=== PATIENT | female | born 1970 | race Caucasian/White ===

== ENCOUNTER 2016-11-14 22:16 | Observation (INO) | payer OTHER ==
[~2016-11-14] VITALS: Ht 170.2 cm; Wt 77.8 kg
[~2016-11-14 22:16] MED LIST: CLOT1CRE3 TOP; FERR-24 PO; RANITAB33 PO
[2016-11-14] MEDS ORDERED: ATOR-22 PO (22:47)
[2016-11-14] MEDS ORDERED: SERT-234 PO (22:47)
[2016-11-14] MEDS ORDERED: MISCCAP80 PO ×2 (22:47)
[2016-11-14] MEDS ORDERED: ZNTT/150 PO (22:47)
[2016-11-14] MEDS ORDERED: FERR325T5 PO (22:47)
[2016-11-14] MEDS ORDERED: ASPI1TAB4 PO (22:51)
[2016-11-14] MEDS ORDERED: LEVO50TA6 PO (22:51)
[2016-11-14] MEDS ORDERED: IBUP-103 PO (22:51)
--- NOTE | 2016-11-14 23:19 | EMERGENCY ROOM VISIT NOTE ---
History Report prepared by Dariel: Xochilt Rocha Under the Supervision of: Dr. Watson Soliz D.O. 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 The patient states she is did not have any trauma or activity that she believes would have caused the pain. The patient currently rates the pain as a 10/10 in severity. The patient states that the pain is worse when she is bending, turning her head, or flexion of her neck. The patient states that today she experienced right eyelid droop. The patient denies any chest pain, SOB, nausea, vomiting, numbness, weakness, or tingling. The patient denies any headache.The patient states she tried to use Advil, ibuprofen, stretching and Bengay to treat the pain without any relief. The patient states that her grandmother recently of a hemorrhagic stroke from aneurysm. 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 Review of Systems See HPI for pertinent positives & negatives. A total of 10 systems reviewed and were otherwise negative. Past Medical & Surgical Medical Problems: (1) Bunion, right Family History Heart disease Hypertension Social History Smoking Status: Never Smoker Alcohol Use: none Drug Use: none Marital Status: Housing Status: lives with significant other Occupation Status: unemployed Current/Historical Medications Scheduled Atorvastatin (Lipitor), 20 MG PO HS Ferrous Sulfate (Ferrous Sulfate), 325 MG PO DAILY Levothyroxine Sodium (Levothyroxine Sodium), 50 MCG PO DAILY Probiotic Product (Probiotic), 1 CAP PO QAM Probiotic Product (Probiotic), 1 CAP PO WITH LUNCH Sertraline (Zoloft), 150 MG PO HS Scheduled PRN Aspirin-Caffeine (Holly Back & Body Pain Ex), 1 TAB PO UD PRN for Pain Ibuprofen Tab (Advil), 200 MG PO UD PRN for Pain Ranitidine (Zantac), 150 MG PO BID PRN for Indigestion Allergies Coded Allergies: Penicillins (Verified Allergy, RASH, 08/14/12) Physical Exam Vital Signs Date Time Temp Pulse Resp B/P Pulse Ox O2 Delivery O2 Flow Rate FiO2 11/14/16 23:24 87 18 149/91 99 Room Air 11/14/16 23:21 84 11/14/16 23:19 99 Room Air 11/14/16 22:20 37.1 92 16 153/95 98 Room Air Physical Exam GENERAL: Patient is awake, alert, and in no acute distress. Patient is resting comfortably and showing no signs of anxiety EYES: The ptosis noted in the right eyelid. Pupils are equal round and reactive to light. Extraocular muscles intact. EARS, NOSE, MOUTH AND THROAT: The nose is without any evidence of any deformity. Mucous membranes are moist tongue is midline NECK: No midline tenderness noted.Appeared to be posterior perivertebral tenderness of the neck. ROM limited secondary to pain. RESPIRATORY: Normal respiratory effort is noted there is no evidence of wheezing rhonchi or rales CARDIOVASCULAR: Regular rate and rhythm noted there no murmurs rubs or gallops normal S1 normal S2 GASTROINTESTINAL: The abdomen is soft. Bowel sounds are present in all quadrants. Abdomen is nontender MUSCULOSKELETAL/EXTREMITIES: There is no evidence of gross deformity full range of motion is noted in the hips and shoulders SKIN: There is no obvious evidence of any rash. There are no petechiae, pallor or cyanosis noted. NEUROLOGIC: Patient is awake alert and oriented x3. No facial droop noted. Patellar tendon reflexes are 2+ bilaterally. Medical Decision & Procedures ER Provider Diagnostic Interpretation: X-ray results as stated below per interpretation by me: Chest X-Ray: No definite infiltrate, Heart size normal, No free air. No acute disease. No change from 08/14/2012 CT results as stated below per my review and radiologist interpretation. Preliminary Findings Only-- See Final Report for Complete Findings: CT HEAD: Mild off axis imaging. No intracranial hemorrhage, mass effect or CT evidence of acute infarct. Ventricles are within limits and midline Paranasal sinuses, mastoid and orbits are within limits CTA HEAD: No vessel cut off, flow significant stenosis or aneurysm identified. 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 CTA NECK: No evidence of flow significant stenosis or dissection Dominant right vertebral artery, anatomic variant Aberrant right subclavian artery, anatomic variant. Radiologist: Cade Bowles MD Study ready at 0009 and initial results transmitted at 0022 Laboratory Results 11/14/16 23:20 Red Blood Count 4.49, Mean Corpuscular Volume 90.2, Mean Corpuscular Hemoglobin 30.5, Mean Corpuscular Hemoglobin Concent 33.8, Mean Platelet Volume 10.8, Neutrophils (%) (Auto) 68.0, Lymphocytes (%) (Auto) 21.4, Monocytes (%) (Auto) 9.0, Eosinophils (%) (Auto) 1.1, Basophils (%) (Auto) 0.3, Neutrophils # (Auto) 7.72, Lymphocytes # (Auto) 2.43, Monocytes # (Auto) 1.02, Eosinophils # (Auto) 0.12, Basophils # (Auto) 0.03 11/14/16 23:20 Test 11/14/16 23:20 11/14/16 23:23 11/15/16 00:51 White Blood Count 11.34 K/uL (4.8-10.8) Red Blood Count 4.49 M/uL (4.2-5.4) Hemoglobin 13.7 g/dL (12.0-16.0) Hematocrit 40.5 % (37-47) Mean Corpuscular Volume 90.2 fL (80-100) Mean Corpuscular Hemoglobin 30.5 pg (25-34) Mean Corpuscular Hemoglobin Concent 33.8 g/dl (32-36) Platelet Count 243 K/uL (130-400) Mean Platelet Volume 10.8 fL (7.4-10.4) Neutrophils (%) (Auto) 68.0 % Lymphocytes (%) (Auto) 21.4 % Monocytes (%) (Auto) 9.0 % Eosinophils (%) (Auto) 1.1 % Basophils (%) (Auto) 0.3 % Neutrophils # (Auto) 7.72 K/uL (1.4-6.5) Lymphocytes # (Auto) 2.43 K/uL (1.2-3.4) Monocytes # (Auto) 1.02 K/uL (0.11-0.59) Eosinophils # (Auto) 0.12 K/uL (0-0.5) Basophils # (Auto) 0.03 K/uL (0-0.2) RDW Standard Deviation 45.3 fL (36.4-46.3) RDW Coefficient of Variation 13.7 % (11.5-14.5) Immature Granulocyte % (Auto) 0.2 % Immature Granulocyte # (Auto) 0.02 K/uL (0.00-0.02) Prothrombin Time 10.6 SECONDS (9.0-12.0) Prothromb Time International Ratio 1.0 (0.9-1.1) Activated Partial Thromboplast Time 26.6 SECONDS (21.0-31.0) Partial Thromboplastin Ratio 1.0 Urine Color YELLOW Urine Appearance CLEAR (CLEAR) Urine pH 6.0 (4.5-7.5) Urine Specific [place] 1.018 (1.000-1.030) Urine Protein NEG (NEG) Urine Glucose (UA) NEG (NEG) Urine Ketones NEG (NEG) Urine Occult Blood NEG (NEG) Urine Nitrite NEG (NEG) Urine Bilirubin NEG (NEG) Urine Urobilinogen NEG (NEG) Urine Leukocyte Esterase SMALL (NEG) Urine WBC (Auto) 1-5 /hpf (0-5) Urine RBC (Auto) 0-4 /hpf (0-4) Urine Hyaline Casts (Auto) 0 /lpf (0-5) Urine Epithelial Cells (Auto) >30 /lpf (0-5) Urine Bacteria (Auto) NEG (NEG) Est Creatinine Clear Calc Drug Dose 85.5 ml/min Estimated GFR () 90.7 Estimated GFR (Non- 78.2 BUN/Creatinine Ratio 19.0 (10-20) Calcium Level 8.4 mg/dl (8.5-10.1) Magnesium Level 2.0 mg/dl (1.8-2.4) Total Bilirubin 0.2 mg/dl (0.2-1) Direct Bilirubin < 0.1 mg/dl (0-0.2) Aspartate Amino Transf (AST/SGOT) 16 U/L (15-37) Alanine Aminotransferase (ALT/SGPT) 39 U/L (12-78) Alkaline Phosphatase 97 U/L (45-117) Troponin I < 0.015 ng/ml (0-0.045) Total Protein 7.5 gm/dl (6.4-8.2) Albumin 3.8 gm/dl (3.4-5.0) Thyroid Stimulating Hormone (TSH) 3.800 uIu/ml (0.300-4.500) Human Chorionic Gonadotropin, Qual NEG (NEG) Bedside Hemoglobin 14.3 g/dl (12.0-16.0) Bedside Hematocrit 42 % (37-47) Bedside Sodium 140 mEq/L (135-144) Bedside Potassium 3.5 mEq/L (3.3-5.0) Bedside Chloride 102 mEq/L (101-112) Bedside Total CO2 24 mEq/l (24-31) Anion Gap 20.0 mmol/L (16-25) Bedside Blood Urea Nitrogen 17 mg/dl (7-18) Bedside Creatinine 0.8 mg/dl (0.6-1.3) Bedside Glucose (other) 95 mg/dl (70-99) Bedside Ionized Calcium ([place]) 1.18 mmol/l (1.12-1.32) Laboratory results per my review. Medications Administered Medications (Trade) Dose Ordered Sig/Torin Route Start Time Stop Time Status Last Admin Dose Admin Ketorolac Tromethamine (Toradol Inj) 30 mg NOW STAT IV 11/15/16 00:29 11/15/16 00:30 DC 11/15/16 00:41 30 MG ECG Indication: other (neck pain) Rate (beats per minute): 79 Rhythm: normal sinus Findings: no ectopy, other (No acute ST segment abnormalities) Comparison ECG Date: July 15, 2012 Change: no significant change ED Course 2255: At this time the patient was evaluated by the medical student. The student s findings were discussed with me. We discussed a possible treatment plan and differential diagnoses for the patient. 2301: The patient was evaluated in room A11B. A complete history and physical examination were performed. 0029: Ordered Toradol Inj 30 mg IV. 0048:I discussed the case with Dr. Blas Arvizu Neurology. He had nothing new to add and that she might want to be seen by ophthalmology for further testing. 0055: I reevaluated the patient at this time and she was hemodynamically stable. She states she is not feeling much better when she arrived and would like to stay for evaluation 0102: I discussed the case with Dr. Gil Arvizu Hospitalist. He agreed to evaluate the patient for further management and care. Medical Decision Prior records/ancillary studies reviewed and summarized above. Nursing notes reviewed. Differential diagnosis: Etiologies such as metabolic, infection, hypo/hyperglycemia, electrolyte abnormalities, cardiac sources, intracerebral event, toxicologic, neurologic, as well as others were entertained. The patient is a 46-year-old female who presented to the emergency department for evaluation of neck pain. The patient complained of neck pain extending into her head but also started noticing problems with her vision on the right eye. The patient noticed that her right eyelid was drooping and this is new for her. The patient states his symptoms have been ongoing since earlier today. She denies having any weakness in the arms or legs. She's had no nausea or vomiting. She has not had similar symptoms in the past. The patient did not have any acute vascular or soft tissue abnormality noted on CT angiography of the head or neck. I discussed the patient's laboratory and radiographic studies with her. She was treated with pain medication in the emergency department. I discussed her case with the on-call neurologist. After discussion he felt the patient may require further studies as well as an evaluation by an community center director. For this reason I discussed this case with the on-call [facility] hospitalist group. They have agreed to evaluate the patient in the emergency department for further management and disposition. The patient was reevaluated multiple times. Consults Time Called: 003 Consulting Physician: Dr. Blas Arvizu Neurology Returned Call: 004 I discussed the case with Dr. Blas Arvizu Neurology. He had nothing new to add and that she might want to be seen by ophthalmology for further testing. Additional Consults: Time Called: 0100 Consulted Physician: Dr. Gil Brody. Returned Call: 010 Additional Comments: I discussed the case with Dr. Gil Brody. He agreed to evaluate the patient for further management and care. Impression Primary Impression: Horners syndrome Additional Impressions: Ptosis, right eyelid Neck muscle strain Headache Scribe Attestation The scribe's documentation has been prepared under my direction and personally reviewed by me in its entirety. I confirm that the note above accurately reflects all work, treatment, procedures, and medical decision making performed by me. Departure Information Dispostion Being Evaluated By Hospitalist Referrals No Doctor, Assigned (PCP) Patient Instructions My [facility] Problem Qualifiers Additional Impressions: Neck muscle strain Encounter type: initial encounter Qualified Codes: S16.1XXA - Strain of muscle, fascia and tendon at neck level, initial encounter Headache Headache type: unspecified Headache chronicity pattern: acute headache Intractability: not intractable Qualified Codes: R51 - Headache
[2016-11-14 23:41] LABS: ISTAT CREATININE 0.8 mg/dl (0.6-1.3); ISTAT HEMOGLOBIN 14.3 g/dl (12.0-16.0); ISTAT IONIZED CALCIUM 1.18 mmol/l (1.12-1.32)
[2016-11-14] MEDS ORDERED: OPTIRAY 320 IV PRN (23:45)
[2016-11-14 23:52] LABS: MANUAL MICROSCOPIC REQUIRED? NO; REVIEW REQ? NO; URINE APPEARANCE CLEAR (CLEAR); URINE BILIRUBIN NEG (NEG); URINE COLOR YELLOW; URINE EPITHELIAL CELL AUTO >30 /lpf (0-5); URINE NITRITE NEG (NEG); URINE SPECIFIC GRAVITY 1.018 (1.000-1.030); UROBILINOGEN NEG (NEG)
[2016-11-15] VITALS (7 sets, daily range): BP systolic 107–138; BP diastolic 69–89; PULSE 71–90; TEMP 36.6–37; O2SAT 95–98; Ht 170.2 cm; Wt 77.8 kg
[2016-11-15] MEDS ORDERED: KETOROLAC TROMETHAMINE 30 MG/ML VIAL IV STA (00:29)
[2016-11-15 00:33] LABS: BASO % 0.3 %; BASO ABS # 0.03 K/uL (0-0.2); COMPLETE YES; EOS % 1.1 %; HEMATOCRIT 40.5 % (37-47); IG% 0.2 %; LYMPH % 21.4 %; LYMPH ABS # 2.43 K/uL (1.2-3.4); MEAN CELL VOLUME 90.2 fL (80-100); MEAN CORPUSCULAR HEMOGLOBIN 30.5 pg (25-34); MEAN CORPUSCULAR HGB CONC 33.8 g/dl (32-36); MEAN PLATELET VOLUME 10.8 fL (7.4-10.4); PLATELET COUNT 243 K/uL (130-400); RED BLOOD COUNT 4.49 M/uL (4.2-5.4); WHITE BLOOD COUNT 11.34 K/uL (4.8-10.8)
[2016-11-15 00:38] LABS: PROTHROMBIN TIME (PATIENT) 10.6 SECONDS (9.0-12.0)
[2016-11-15 00:42] LABS: ALT/SGPT 39 U/L (12-78); AST/SGOT 16 U/L (15-37); BLOOD UREA NITROGEN 17 mg/dl (7-18); CALCIUM 8.4 mg/dl (8.5-10.1); CARBON DIOXIDE 27 mmol/L (21-32); CHLORIDE 107 mmol/L (98-107); CREATININE 0.88 mg/dl (0.60-1.20); GLUCOSE 89 mg/dl (70-99); POTASSIUM 3.5 mmol/L (3.5-5.1); SODIUM 143 mmol/L (136-145)
[2016-11-15 00:52] LABS: ALKALINE PHOSPHATASE 97 U/L (45-117)
[2016-11-15 00:58] LABS: PREG INTERNAL NEGATIVE QC NEG CLEAR BACKGROUND; PREG INTERNAL POSITIVE QC POS CONTROL LINE
[2016-11-15 01:18] LABS: LYME DISEASE AB IGG NEG (NEG); LYME DISEASE AB IGM NEG (NEG)
[2016-11-15] MEDS ORDERED: ONDANSETRON INJ 2 MG/ML 2 ML VIAL IV STA (01:26)
[2016-11-15] MEDS ORDERED: SODIUM CHLORIDE 0.9% 1000ML 1,000 ML IV STA (01:26)
[2016-11-15] MEDS ORDERED: MoRPHine SULFATE 4 MG/ML 1 ML CARP\\VIAL IV PRN (01:30)
[2016-11-15] MEDS ORDERED: CALCIUM GLUCONATE 10% 1,000 MG in SODIUM CHLORIDE 0.9% 50ML 50 ML IV STA (01:43)
[2016-11-15] MEDS ORDERED: POTASSIUM CHLORIDE 10 MEQ TABCR PO STA (02:16)
[2016-11-15] MEDS ORDERED: RANITIDINE HCL 150 MG TAB PO PRN (02:30)
[2016-11-15] MEDS ORDERED: IV FLUIDS COMPLETED PRN (02:30)
[2016-11-15] MEDS ORDERED: LORAZEPAM 2 MG/ML 1 ML VIAL IV PRN (02:30)
[2016-11-15] MEDS ORDERED: IBUPROFEN 200 MG TAB PO PRN (02:30)
[2016-11-15] MEDS ORDERED: LORAZEPAM 2 MG/ML 1 ML VIAL IV STA (02:30)
[2016-11-15] MEDS ORDERED: ONDANSETRON INJ 2 MG/ML 2 ML VIAL IV PRN (02:30)
[2016-11-15] MEDS ORDERED: ACETAMINOPHEN 325 MG TAB PO PRN (02:30)
[2016-11-15] MEDS ORDERED: TRAMADOL HCL 50 MG TAB PO PRN (02:30)
[2016-11-15] MEDS ORDERED: NITROGLYCERIN 0.4 MG SL PER TAB CHARGE SL PRN (02:30)
[2016-11-15] MEDS ORDERED: CYCLOBENZAPRINE HCL 10 MG TAB PO STA (02:31)
[2016-11-15] MEDS ORDERED: GADAVIST IV PRN (03:45)
[2016-11-15] MEDS ORDERED: LACTATED RINGER'S 1000ML 1,000 ML IV ONE (04:30)
[2016-11-15] MEDS: HYDROmorphone INJ 0.5 MG/0.5 ML SYR IV PRN ×3 (06:08→20:30)
--- NOTE | 2016-11-15 06:13 | HISTORY & PHYSICAL EXAMINATION ---
DATE OF ADMISSION: 11/15/2016 PRIMARY CARE DOCTOR: Dr. Car. CHIEF COMPLAINT: Neck pain, droopy right upper eyelid. HISTORY OF PRESENT ILLNESS: Medical history significant for hyperlipidemia, reflux, past tobacco abuse. Yesterday, the patient woke up with a stiff neck. May have fell asleep in a bad position. She noticed her daughter staring at her. Daughter felt that her right upper lid was droopy. No blurred vision/tearing. No chest pain, no shortness of breath. Patient later on noted generalized achy headache, No previous episodes. Patient brought to the Emergency Room. MEDICAL HISTORY: As above. SURGERIES: Bunion surgery. HOME MEDICATIONS: Include Atorvastatin, ranitidine, sertraline, levothyroxine, omeprazole, lorazepam, cyclobenzaprine. ALLERGIES: PENICILLIN. FAMILY HISTORY: Heart disease, hypertension, stroke. stomach ulcer, heart disease. PERSONAL AND SOCIAL HISTORY: Past tobacco abuse. No chronic intake of alcoholic beverages. 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 PHYSICAL EXAMINATION: VITAL SIGNS: Blood pressure was noted to be 150/95, later 120/70, pulse 90, RR 18, temperature 37, sats 98 on room air. GENERAL: Noted to be slightly anxious, no respiratory distress. SKIN: Normal color. HEENT: [place] palpebral conjunctivae. ptosis, R, dry mucosa. Angular cheilitis noted (chronic) NECK: Stiff. Limited ROM. CHEST: Clear to auscultation. HEART: Regular rate and rhythm. ABDOMEN: Soft. EXTREMITIES: No edema. no tenderness NEUROLOGIC: ptosis, R, Pupils equal in size. LABORATORIES: Hemoglobin was noted to be 13.7, hematocrit 40, white cells 11.3, platelets 240. Sodium 140, potassium 3.5, chloride 107, CO2 27, BUN 17, creatinine 0.8, glucose was noted to be 89. CT initial read showed no intracranial hemorrhage. CTA of the head, no blood flow cutoff, no significant stenosis or aneurysm identified. 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 CTA of the neck, no evidence of flow significant stenosis or dissection. ASSESSMENT: 1. Sudden onset of ptosis, right w/ headache sx may or may not be related to torticollis sx from sleep position. Differentials include : ocular (? aponeurotic ptosis) extraocular (? myasthenia gravis ? cranial nerve palsy from brain tumor ? Jaquan syndrome (although unlikely due to equal pupillary size) 2. hyperlipidemia, on statin therapy. 3. Past tobacco abuse. PLAN: Observation PCU. MRI of the brain. Further eval and mx of unilateral ptosis as per Neurology. (ER MD already in touch with Dr. Odonnell.) May need Ophthalmology evaluation once extraocular causes are ruled out. Symptomatic management for torticollis. DVT prophylaxis, SCDs. Full code. MTDD
[2016-11-15] MEDS: LEVOTHYROXINE 50 MCG TAB PO SCH (06:16)
--- NOTE | 2016-11-15 06:47 | DIAGNOSTIC IMAGING REPORT ---
CHEST ONE VIEW PORTABLE CLINICAL HISTORY: Altered mental status. Weakness. COMPARISON STUDY: No previous studies for comparison. FINDINGS: The cardiac and mediastinal contours are normal. There is no evidence of focal pulmonary consolidation. There is no evidence of failure. No pleural effusions are visualized.[ IMPRESSION: No active disease in the chest. Electronically signed by: Thony Marks M.D. 11/15/2016 6:45 AM Dictated Date/Time: 11/15/2016 6:44 AM
--- NOTE | 2016-11-15 07:27 | DIAGNOSTIC IMAGING REPORT ---
HEAD CTA HISTORY: Right ptosis. TECHNIQUE: Multiaxial CT images of the head were performed both before and after the intravenous administration of contrast to evaluate the major cerebral vessels. Maximum intensity projection images were also obtained. COMPARISON: None. FINDINGS: There is no mass, hematoma, midline shift, or acute infarct. Visualized intracranial internal carotid arteries, distal vertebral arteries, and basilar artery are widely patent. There is no significant stenosis or occlusion seen within the bilateral ACAs, MCAs, or patcher helper. right TOOL DISPATCHER, and anatomic variant. The right A1 segment appears to be absent versus also likely on a developmental basis. 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 IMPRESSION: 1. No significant stenosis or occlusion within the three affiliated of [place]. 2. 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 Electronically signed by: Greyson Sumner M.D. 11/15/2016 7:26 AM Dictated Date/Time: 11/15/2016 7:20 AM
--- NOTE | 2016-11-15 07:31 | DIAGNOSTIC IMAGING REPORT ---
CT ANGIOGRAPHY NECK COMBO CT DOSE: 1141.33 mGy.cm CLINICAL HISTORY: Neck pain and right eye ptosis TECHNIQUE: CT angiography the neck was performed in a dynamic helical fashion during intravenous administration of 92 cc of Optiray 320. MIP imaging was performed. COMPARISON STUDY: None. FINDINGS: There is a 9 mm irregular opacity within the right upper lobe. Short-term CT follow-up is recommended. There is a 2 mm nodule within the right upper lobe. There is elevation of the interstitium. There is a left aortic arch with an aberrant right subclavian artery. There is no evidence of hemodynamically significant carotid stenosis. There is no evidence of carotid dissection. There is no evidence of vertebral artery stenosis or dissection. IMPRESSION: 1. No evidence of carotid artery stenosis or dissection 2. No evidence of vertebral artery stenosis or dissection 3. Left aortic arch with an aberrant right subclavian artery 4. Irregular 9 mm right apical pulmonary opacity. Short-term CT follow-up is recommended. This finding will be called, as this was not described in the preliminary report. Please refer to below summary of Fleischner criteria recommendations for follow-up of incidental CT nodules (Lou Salomon, Guidelines for management of small pulmonary nodules detected on CT scans: A statement from the Fleischner Society, Radiology 237: [phone].) Low Risk Patient: Minimal or no smoking or other known risk factors for malignancy <=4 mm: No follow-up needed. >4-6 mm: Initial follow-up CT at 12 months; if unchanged, no further follow-up. >6-8 mm: Initial follow-up CT at 6-12 months then at 18-24 months if no change. >8 mm: Follow-up CT at \R\3, 9, 24 months, or PET and/or biopsy. High Risk Patient: History of smoking or other known risk factors <=4 mm: Follow-up at 12 months; if unchanged, no further follow-up. >4-6 mm: Initial follow-up CT at 6-12 months then at 18-24 months if no change. >6-8 mm: Initial follow-up CT at 3-6 months then at 9-12 and 24 months if no change. >8 mm: Same as low risk patient. Note: Nodule size measured as average of length and width. Ground glass or partly solid nodules may require longer follow-up to exclude indolent adenocarcinoma. Electronically signed by: Thony Marks M.D. 11/15/2016 7:30 AM Dictated Date/Time: 11/15/2016 7:16 AM
--- NOTE | 2016-11-15 07:49 | DIAGNOSTIC IMAGING REPORT ---
Brain MRI WITH AND WITHOUT CONTRAST HISTORY: headache, ptosis R TECHNIQUE: Multiplanar multisequence MRI of the brain was performed both before and after the intravenous administration of contrast. COMPARISON STUDY: Head CT 8 11/14/2016. FINDINGS: There are no areas of restricted diffusion to suggest acute infarction. The midline structures are intact. The paranasal sinuses are clear. The mastoid air cells are clear. The ventricles and sulci are within normal limits for age. There is no mass, hematoma, midline shift. The major vascular flow-voids at the skull base are well maintained. Postcontrast sequences show no areas of abnormal enhancement. Incidental note is made of a possible small meningocele within the midline posteriorly at the level of the left parietal lobe. This is best seen on axial T2 image 14 and 22. This measures 9 mm and displaces the superior sagittal sinus. There is also a small right parietal developmental venous anomaly. This is considered to be a normal variant. IMPRESSION: 1. No acute intracranial abnormality. 2. 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 Electronically signed by: Greyson Sumner M.D. 11/15/2016 7:47 AM Dictated Date/Time: 11/15/2016 7:39 AM
[2016-11-15] MEDS: FERROUS SULFATE 325 MG TAB PO SCH (08:13)
[2016-11-15] MEDS: CYCLOBENZAPRINE HCL 5 MG TAB PO SCH ×3 (08:13→20:30)
[2016-11-15] MEDS ORDERED: NON-FORMULARY MEDICATION (Probiotic Product (Probiotic) 1 CAP) PO SCH (09:00)
--- NOTE | 2016-11-15 14:13 | Neurology Consultation ---
Neurology Consultation Date of Consultation: Nov 15, 2016. Attending Physician: Klaus Archuleta MD Primary Care Physician: Bibi Car M.D. Reason for Consultation: ptosis of right eye History of Present Illness Source: patient Faith is a 46 year old female with a PMH hypothyroid, chronic TEX who woke Sunday morning with neck pain. She thought the pain was the way she slept on it. The pain kept getting worse and worse and was causing a headache and then last night her daughter said her left eye lid was drooping. She denies vision changes or double vision. She states she has been very fatigued more than usual and that it is worse as the day goes on. No new medications. Past Medical/Surgical History Medical Problems: (1) Headache Status: Acute (2) Horners syndrome Status: Acute (3) Neck muscle strain Status: Acute (4) Ptosis, right eyelid Status: Acute Social History Smoking Status: Former smoker Drug Use: none Marital Status: Housing Status: lives with significant other Occupation Status: unemployed Allergies Coded Allergies: Penicillins (Verified Allergy, RASH, 08/14/12) Current Inpatient Medications Current Inpatient Medications Medications (Trade) Dose Ordered Sig/Torin Route Start Time Stop Time Status Last Admin Dose Admin Ioversol 100 ml 100 ml UD PRN IV 11/14/16 23:45 11/18/16 23:44 Lactated Ringer's (Lr 1000ml) 1,000 ml @ 75 mls/hr [id number] ONCE IV 11/15/16 04:30 11/15/16 17:49 11/15/16 06:08 75 MLS/HR Cyclobenzaprine HCl (Flexeril Tab) 5 mg TID PO 11/15/16 09:00 12/15/16 08:59 11/15/16 08:13 5 MG Miscellaneous (Iv Fluids Completed) 1 ea PRN PRN N/A 11/15/16 02:30 11/15/17 02:29 Acetaminophen (Tylenol Tab) 650 mg Q4H PRN PO 11/15/16 02:30 12/15/16 02:29 Nitroglycerin (Nitrostat Tab) 0.4 mg UD PRN SL 11/15/16 02:30 12/15/16 02:29 Tramadol HCl (Ultram Tab) 25 mg Q6H PRN PO 11/15/16 02:30 12/15/16 02:29 Lorazepam (Ativan Inj) 0.5 mg Q4H PRN IV 11/15/16 02:30 12/15/16 02:29 Ondansetron HCl (Zofran Inj) 4 mg Q6H PRN IV 11/15/16 02:30 12/15/16 02:29 Atorvastatin Calcium (Lipitor Tab) 20 mg HS PO 11/15/16 21:00 12/15/16 20:59 Ferrous Sulfate (Feosol Tab) 325 mg DAILY PO 11/15/16 09:00 12/15/16 08:59 11/15/16 08:13 325 MG Levothyroxine Sodium (Synthroid Tab) 50 mcg DAILYBB PO 11/15/16 06:00 12/15/16 06:59 11/15/16 06:16 50 MCG Ranitidine HCl (zANTac TAB) 150 mg BID PRN PO 11/15/16 02:30 12/15/16 02:29 Sertraline HCl (Zoloft Tab) 150 mg HS PO 11/15/16 21:00 12/15/16 20:59 Ibuprofen (Advil Tab) 400 mg Q6H PRN PO 11/15/16 02:30 12/15/16 02:29 Ketorolac Tromethamine (Toradol Inj) 30 mg Q6H PRN IV 11/15/16 02:30 11/20/16 02:29 Hydromorphone HCl (Dilaudid Inj) 0.5 mg Q6H PRN IV 11/15/16 02:30 11/29/16 02:29 11/15/16 11:15 0.5 MG Gadobutrol (Gadavist) 7.9 mmol UD PRN IV 11/15/16 03:45 11/19/16 03:44 Physical Exam Vital Signs (Past 24 Hrs): Date Time Temp Pulse Resp B/P Pulse Ox O2 Delivery O2 Flow Rate FiO2 11/15/16 12:00 Room Air 11/15/16 11:30 37.0 90 22 124/77 98 Room Air 11/15/16 08:00 Room Air 11/15/16 07:25 36.6 73 14 114/75 98 Room Air 11/15/16 04:06 36.8 84 18 138/89 98 Room Air 11/15/16 02:51 78 18 137/95 96 11/15/16 01:13 80 18 135/83 97 Room Air 11/14/16 23:24 87 18 149/91 99 Room Air 11/14/16 23:21 84 11/14/16 23:19 99 Room Air 11/14/16 22:20 37.1 92 16 153/95 98 Room Air Physical Exam: Constitutional: appearance nourished, healthy and normal Ears, Nose, Mouth and Throat: mucous membranes moist, no injection and skin normal, eyes normal Cardiovascular: normal S-1 and S-2 and regular rate and rhythm Respiratory: clear to auscultation (CTA) and no rales, rhonchi or wheeze Musculoskeletal: no peripheral edema and good distal pulses, limited movement neck laterally and front back, tender to palpation right trapezius Skin: no stigmata of neurocutaneous disease noted and normal and intact Eyes: pupils reactive bilaterally lid ptosis on right, EOMI no fatigue with stressing eye lids able to keep tight shut NEUROLOGIC EXAMINATION: Mental status: Alert and interactive Oriented to full date and location Oriented to person Speech fluent with no evidence of aphasia Cranial Nerves smile and eye brow raise symmetric, tongue midline Reflexes: Deep tendon reflexes were symmetrical brisk bilaterally no clonus Plantar responses were flexor. Sensory: no deficit with cool vibration GT proprioception intact Coordination: Romberg absent Gait/Stance: Posture normal. Gait normal: with steady with steps, base, turning, and tandem gait. stressing deltoids no fatigue Motor: Negative for pronator drift of out stretched arms with eyes closed. Strength: biceps triceps deltoids hand actimize architect bilaterally 5/5, hip flex plantar flex ext 5/ 5 bilaterally Laboratory Results Past 24 Hours: 11/14/16 23:20 Red Blood Count 4.49, Mean Corpuscular Volume 90.2, Mean Corpuscular Hemoglobin 30.5, Mean Corpuscular Hemoglobin Concent 33.8, Mean Platelet Volume 10.8, Neutrophils (%) (Auto) 68.0, Lymphocytes (%) (Auto) 21.4, Monocytes (%) (Auto) 9.0, Eosinophils (%) (Auto) 1.1, Basophils (%) (Auto) 0.3, Neutrophils # (Auto) 7.72, Lymphocytes # (Auto) 2.43, Monocytes # (Auto) 1.02, Eosinophils # (Auto) 0.12, Basophils # (Auto) 0.03 11/14/16 23:20 Test 11/14/16 23:20 11/14/16 23:23 11/15/16 07:50 White Blood Count 11.34 K/uL (4.8-10.8) Red Blood Count 4.49 M/uL (4.2-5.4) Hemoglobin 13.7 g/dL (12.0-16.0) Hematocrit 40.5 % (37-47) Mean Corpuscular Volume 90.2 fL (80-100) Mean Corpuscular Hemoglobin 30.5 pg (25-34) Mean Corpuscular Hemoglobin Concent 33.8 g/dl (32-36) Platelet Count 243 K/uL (130-400) Mean Platelet Volume 10.8 fL (7.4-10.4) Neutrophils (%) (Auto) 68.0 % Lymphocytes (%) (Auto) 21.4 % Monocytes (%) (Auto) 9.0 % Eosinophils (%) (Auto) 1.1 % Basophils (%) (Auto) 0.3 % Neutrophils # (Auto) 7.72 K/uL (1.4-6.5) Lymphocytes # (Auto) 2.43 K/uL (1.2-3.4) Monocytes # (Auto) 1.02 K/uL (0.11-0.59) Eosinophils # (Auto) 0.12 K/uL (0-0.5) Basophils # (Auto) 0.03 K/uL (0-0.2) RDW Standard Deviation 45.3 fL (36.4-46.3) RDW Coefficient of Variation 13.7 % (11.5-14.5) Immature Granulocyte % (Auto) 0.2 % Immature Granulocyte # (Auto) 0.02 K/uL (0.00-0.02) Prothrombin Time 10.6 SECONDS (9.0-12.0) Prothromb Time International Ratio 1.0 (0.9-1.1) Activated Partial Thromboplast Time 26.6 SECONDS (21.0-31.0) Partial Thromboplastin Ratio 1.0 Urine Color YELLOW Urine Appearance CLEAR (CLEAR) Urine pH 6.0 (4.5-7.5) Urine Specific [place] 1.018 (1.000-1.030) Urine Protein NEG (NEG) Urine Glucose (UA) NEG (NEG) Urine Ketones NEG (NEG) Urine Occult Blood NEG (NEG) Urine Nitrite NEG (NEG) Urine Bilirubin NEG (NEG) Urine Urobilinogen NEG (NEG) Urine Leukocyte Esterase SMALL (NEG) Urine WBC (Auto) 1-5 /hpf (0-5) Urine RBC (Auto) 0-4 /hpf (0-4) Urine Hyaline Casts (Auto) 0 /lpf (0-5) Urine Epithelial Cells (Auto) >30 /lpf (0-5) Urine Bacteria (Auto) NEG (NEG) Est Creatinine Clear Calc Drug Dose 85.5 ml/min Estimated GFR () 90.7 Estimated GFR (Non- 78.2 BUN/Creatinine Ratio 19.0 (10-20) Calcium Level 8.4 mg/dl (8.5-10.1) Magnesium Level 2.0 mg/dl (1.8-2.4) Total Bilirubin 0.2 mg/dl (0.2-1) Direct Bilirubin < 0.1 mg/dl (0-0.2) Aspartate Amino Transf (AST/SGOT) 16 U/L (15-37) Alanine Aminotransferase (ALT/SGPT) 39 U/L (12-78) Alkaline Phosphatase 97 U/L (45-117) Troponin I < 0.015 ng/ml (0-0.045) Total Protein 7.5 gm/dl (6.4-8.2) Albumin 3.8 gm/dl (3.4-5.0) Thyroid Stimulating Hormone (TSH) 3.800 uIu/ml (0.300-4.500) Human Chorionic Gonadotropin, Qual NEG (NEG) Lyme Disease IgG Antibody NEG (NEG) Lyme Disease IgM Antibody NEG (NEG) Bedside Hemoglobin 14.3 g/dl (12.0-16.0) Bedside Hematocrit 42 % (37-47) Bedside Sodium 140 mEq/L (135-144) Bedside Potassium 3.5 mEq/L (3.3-5.0) Bedside Chloride 102 mEq/L (101-112) Bedside Total CO2 24 mEq/l (24-31) Anion Gap 20.0 mmol/L (16-25) Bedside Blood Urea Nitrogen 17 mg/dl (7-18) Bedside Creatinine 0.8 mg/dl (0.6-1.3) Bedside Glucose (other) 95 mg/dl (70-99) Bedside Ionized Calcium ([place]) 1.18 mmol/l (1.12-1.32) Imaging MRI with and without contrast brain- No acute intracranial abnormality. 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 CTA head- No significant stenosis or occlusion within the [place]. 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 CTA neck- No evidence of carotid artery stenosis or dissection 2. No evidence of vertebral artery stenosis or dissection 3. Left aortic arch with an aberrant right subclavian artery 4. Irregular 9 mm right apical pulmonary opacity. Short-term CT follow-up is recommended. This finding will be called, as this was not described in the preliminary report. Impression 46 year old with right eye lid ptosis Plan 1. MRI brain with and without no acute findings 2. CT chest and soft tissue neck for possible lesions 3. continue pain mgt prn 4. labs ordered -pending 5. CTA neck with lung nodules CTA head with possible 2mm aneurysm 6. further recommendations to follow once images are completed I have seen and discussed above patient with Dr Nelson Odonnell, neurology Patient seen and interviewed and examined- the evidence for a right horners syndrome is at best weak today but will continue the planned workup with soft tissue ct of neck chest ct to check for apex lesion and will get cervical mri to dheck for unlikely central lesion affecting descending sympathetic pathways and a process at the lower cervical root exit zone but frankly upon review of exam and history suspect this is a migrain variant ( she has a history of low frequency headaches as does her daughter ) and the ptosis is minimal without eom dysfunction or pupillary abnormalities even in a darkened room. will follwo up on imaging and if negative she can be discharged tomorrow Nelson Odonnell MD
[2016-11-15] MEDS: KETOROLAC TROMETHAMINE 30 MG/ML VIAL IV PRN ×2 (14:34→23:52)
[2016-11-15] MEDS ORDERED: ATORVASTATIN 20 MG TAB PO SCH (21:00)
[2016-11-15] MEDS ORDERED: SERTRALINE HCL 100 MG TAB PO SCH (21:00)
[2016-11-15] MEDS ORDERED: OPTIRAY 320 IV PRN (22:45)
[2016-11-16] MEDS: HYDROmorphone INJ 0.5 MG/0.5 ML SYR IV PRN ×2 (03:19→11:07)
[2016-11-16 03:25] VITALS: BP 115/78; PULSE 84; TEMP 36.8; O2SAT 97
[2016-11-16] MEDS: KETOROLAC TROMETHAMINE 30 MG/ML VIAL IV PRN (06:18)
[2016-11-16] MEDS: LEVOTHYROXINE 50 MCG TAB PO SCH (06:18)
--- NOTE | 2016-11-16 06:53 | DIAGNOSTIC IMAGING REPORT ---
CT soft tissue neck SOFT TISSUE NECK WITH CLINICAL HISTORY: Neck pain. Coronary syndrome TECHNIQUE: Transaxial acquisition with multi axial reformatted images COMPARISON STUDY: None FINDINGS: All major salivary glands are unremarkable. Several small reactive cervical nodes are present. There is no significant bulky adenopathy. There is no airway compromise. Glottic and subglottic regions are unremarkable. Note is made of fibrotic and/or nodular changes right pulmonary apex. IMPRESSION: No significant abnormality of the soft tissue neck. Fibrotic/nodular changes right pulmonary apex Electronically signed by: Zay Weldon M.D. 11/16/2016 6:52 AM Dictated Date/Time: 11/16/2016 6:49 AM
--- NOTE | 2016-11-16 07:32 | DIAGNOSTIC IMAGING REPORT ---
CHEST CT WITH CONTRAST CT DOSE: HISTORY: right ptosis question horners syndrome or myasthenia TECHNIQUE: Multiaxial CT images of the chest were performed following the intravenous administration of contrast. COMPARISON: Chest CTA 08/14/2012. FINDINGS: The central airways are patent. No pleural effusions. No pneumothorax. There are 2 irregular densities within the right upper lobe with the largest measuring 1.8 cm. These are stable compared to the prior study and therefore likely represent areas of scarring. No new focal lung consolidations. The visualized liver and adrenal glands are unremarkable. There is a left aortic arch with an aberrant right subclavian artery. The central pulmonary arteries are patent. Normal caliber thoracic aorta. The heart is normal in size. A 7 mm hypodense lesion within the spleen remains stable. This is also likely benign. No suspicious lytic or blastic osseous lesions. A few prominent mediastinal lymph nodes are not significantly changed. No hilar lymphadenopathy. IMPRESSION: 1. No significant change compared the 2012 examination. 2. Small scarlike densities within the right upper lobe persists. 3. Prominent mediastinal lymph nodes are also unchanged. 4. Additional findings as described above. Electronically signed by: Greyson Sumner M.D. 11/16/2016 7:31 AM Dictated Date/Time: 11/16/2016 7:26 AM
[2016-11-16 07:36] VITALS: BP 124/81; PULSE 79; TEMP 36.3; O2SAT 100
--- NOTE | 2016-11-16 08:26 | DIAGNOSTIC IMAGING REPORT ---
CERVICAL SPINE MRI WITH AND WITHOUT CONTRAST HISTORY: Pain. Neuropathy. lesions or abnormalities acute pain TECHNIQUE: Multiplanar multisequence MRI of the cervical spine was performed both before and after the use of intravenous contrast. COMPARISON STUDY: None. FINDINGS: Normal signal characteristics of the vertebral bodies. Mild degenerative disc changes throughout. Mild disc bulges from C3 through C6 based on sagittal images. C2-C3: No significant central canal or neural foraminal narrowing. C3-C4: Mild broad-based disc bulge. Partial effacement anterior subarachnoid space. Minimal narrowing of the neuroforamina bilaterally C4-C5: Mild broad-based disc bulge. Mild narrowing neuroforamina bilaterally C5-C6: Mild broad-based disc bulge. Narrowing of the left and to a lesser extent right neural foramina. No impact upon the cervical cord. C6-C7: Mild broad-based bulging disc. Moderate narrowing of the neuroforamina bilaterally C7-T1: No significant central canal or neural foraminal narrowing. IMPRESSION: 1. Mild broad-based bulging disc from C3 through C6. 2. No significant impact upon the cervical cord. 3. Moderate narrowing of the neuroforamina bilaterally at multiple levels Electronically signed by: Zay Weldon M.D. 11/16/2016 8:25 AM Dictated Date/Time: 11/16/2016 8:22 AM
[2016-11-16] MEDS: CYCLOBENZAPRINE HCL 5 MG TAB PO SCH ×2 (08:27→13:11)
[2016-11-16] MEDS: FERROUS SULFATE 325 MG TAB PO SCH (08:27)
[2016-11-16 11:46] VITALS: BP 117/81; PULSE 92; TEMP 37.3; O2SAT 96
--- NOTE | 2016-11-16 13:15 | Progress Note ---
Internal Med Progress Note Date of Service: Nov 16, 2016. Provider Documentation: SUBJECTIVE: Patient is lying in her bed and is in no acute distress. Has intermittent headache/nausea which is mild and has not vomited. No visual disturbance.Feels weak. Remains afebrile. OBJECTIVE: Vital Signs-as noted below Examination: GENERAL: Alert/Awake and is slightly anxious, In no respiratory distress. SKIN: Normal color. HEENT: [place] palpebral conjunctivae. , dry mucosa. Angular cheilitis noted ( chronic) NECK: Supple, Midline trachea, Normal movements. CHEST: B/L Clear to auscultation. HEART: Regular rate and rhythm.Normal S1, S2. ABDOMEN: Soft.Non-tender, Bowel sounds are present. EXTREMITIES: No edema. no tenderness, Moderate pulses are present. NEUROLOGIC: Pupils equal in size B/L. No gross neurologic deficit noted on examination. Lab data as noted below. ASSESSMENT & PLAN: CT ANGIOGRAPHY NECK COMBO IMPRESSION: 1. No evidence of carotid artery stenosis or dissection 2. No evidence of vertebral artery stenosis or dissection 3. Left aortic arch with an aberrant right subclavian artery 4. Irregular 9 mm right apical pulmonary opacity. Short-term CT follow-up is recommended. This finding will be called, as this was not described in the preliminary report. HEAD CTA IMPRESSION: 1. No significant stenosis or occlusion within the [place]. 2. 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 Brain MRI WITH AND WITHOUT CONTRAST IMPRESSION: 1. No acute intracranial abnormality. 2. 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 CHEST CT WITH CONTRAST IMPRESSION: 1. No significant change compared the 2012 examination. 2. Small scar like densities within the right upper lobe persists. 3. Prominent mediastinal lymph nodes are also unchanged. 4. Additional findings as described above. CERVICAL SPINE MRI WITH AND WITHOUT CONTRAST IMPRESSION: 1. Mild broad-based bulging disc from C3 through C6. 2. No significant impact upon the cervical cord. 3. Moderate narrowing of the neuro-foramina bilaterally at multiple levels Assessment/ Plan: Clinically & hemodynamically doing well. Sudden onset of Right Ptosis: Resolved. has intermittent headache. May or may not be related to torticollis sx from sleep position. -All the work up is negative so far. -May benefit from PT for the Cervical issues. -CT chest shows no new finding Hyperlipidemia: Continue statin therapy. Past tobacco abuse. DVT Prophylaxis: SCDs. Disposition: Discharge home later today. Follow up with PCP on 11/23/2016 @ 12.50 PM. Follow up with Neurology in 2 weeks. Vital Signs: Date Time Temp Pulse Resp B/P Pulse Ox O2 Delivery O2 Flow Rate FiO2 11/16/16 15:16 37.0 75 18 111/74 95 Room Air 11/16/16 11:52 Room Air 11/16/16 11:46 37.3 92 20 117/81 96 Nasal Cannula 2.0 11/16/16 08:00 Room Air 11/16/16 07:36 36.3 79 20 124/81 100 Room Air 11/16/16 04:00 Room Air 11/16/16 03:25 36.8 84 18 115/78 97 Room Air 11/15/16 23:59 Room Air 11/15/16 23:58 36.9 71 18 116/75 96 Room Air 11/15/16 20:00 Room Air 11/15/16 19:25 36.9 76 18 123/78 97 Room Air 11/15/16 16:00 95 Room Air
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
[2016-11-16 15:16] VITALS: BP 111/74; PULSE 75; TEMP 37; O2SAT 95
[2016-11-16] MEDS ORDERED: FLX5 PO (15:44)
--- NOTE | 2016-11-16 15:45 | Discharge Instructions ---
Discharge Instructions Date of Service Nov 16, 2016. Admission Reason for Admission: Headache, Ptosis, Right Eyelid Discharge Discharge Diagnosis / Problem: Right Sided Ptosis (Resolved) Discharge Goals Goal(s): Decrease discomfort, Improve function, Increase independence, Improve disease control, Learn about illness, Diagnostic testing, Therapeutic intervention Activity Recommendations Activity Limitations: resume your previous activity (As Tolerated.) Lifting Limitations: none Exercise/Sports Limitations: as tolerated May Resume Sexual Activity: when tolerated Shower/Bathe: no limitations . Instructions / Follow-Up Instructions / Follow-Up 1. Take medications as directed. 2. Apply warm compresses locally to back of neck. Follow up with PCP on 11/23/2016 @ 12.50 PM. Follow up with Neurology in 2 weeks. Current Hospital Diet Patient's current hospital diet: AHA Diet (Heart Healthy) Discharge Diet Recommended Diet: AHA Diet (Heart Healthy) Pending Studies Studies pending at discharge: no Medical Emergencies . Who to Call and When: Medical Emergencies: If at any time you feel your situation is an emergency, please call 911 immediately. . Non-Emergent Contact Non-Emergency issues call your: Primary Care Provider . . "Provider Documentation" section prepared by Klaus Archuleta. VTE Core Measure Inpt VTE Proph given/why not?: SCD's
[2016-11-16 16:00] VITALS: O2SAT 95
--- NOTE | 2016-11-16 16:03 | Discharge Summary ---
Discharge Summary Date of Service Nov 16, 2016. Discharge Summary Admission Date: Nov 15, 2016 at 02:14 Discharge Date: Nov 16, 2016 Discharge Disposition: Home Principal Diagnosis: Right Sided Ptosis (Resolved) Secondary Diagnoses/Problems: Hyperlipidemia Procedures: See Below in Hospital Course Vaccinations: NONE Consultations: Neurology Pending Studies/Follow-Up: Follow up with Neurology in 2 weeks Medication Reconciliation New Medications: Cyclobenzaprine HCl (Cyclobenzaprine HCl) 5 Mg Tab 5 MG PO TID PRN for Neck Pain/Stiffness, #30 TAB Continued Medications: Aspirin-Caffeine ([place] Back & Body Pain Ex) 1 Tab Tab 1 TAB PO UD PRN for Pain TAKE PER PACKAGE DIRECTIONS Atorvastatin (Lipitor) 20 Mg Tab 20 MG PO HS, TAB Ferrous Sulfate (Ferrous Sulfate) 325 Mg Tab 325 MG PO DAILY Ibuprofen Tab (Advil) 200 Mg Tab 200 MG PO UD PRN for Pain, TAB TAKE PER PACKAGE DIRECTIONS Levothyroxine Sodium (Levothyroxine Sodium) 50 Mcg Tab 50 MCG PO DAILY, TAB Probiotic Product (Probiotic) 1 Cap Cap 1 CAP PO QAM Probiotic Product (Probiotic) 1 Cap Cap 1 CAP PO WITH LUNCH Ranitidine (Zantac) 150 Mg Tab 150 MG PO BID PRN for Indigestion, TAB Sertraline (Zoloft) 100 Mg Tab 150 MG PO HS, TAB Admission Information HPI (per Admitting provider): Medical history significant for hyperlipidemia, reflux, past tobacco abuse. Yesterday, the patient woke up with a stiff neck. May have fell asleep in a bad position. She noticed her daughter staring at her. Daughter felt that her right upper lid was droopy. No blurred vision/tearing. No chest pain, no shortness of breath. Patient later on noted generalized achy headache, No previous episodes. Patient brought to the Emergency Room. Physical Exam (per Admitting): GENERAL: Noted to be slightly anxious, no respiratory distress. SKIN: Normal color. HEENT: [place] palpebral conjunctivae. ptosis, R, dry mucosa. Angular cheilitis noted (chronic) NECK: Stiff. Limited ROM. CHEST: Clear to auscultation. HEART: Regular rate and rhythm. ABDOMEN: Soft. EXTREMITIES: No edema. no tenderness NEUROLOGIC: ptosis, R, Pupils equal in size. Hospital Course CT ANGIOGRAPHY NECK COMBO IMPRESSION: 1. No evidence of carotid artery stenosis or dissection 2. No evidence of vertebral artery stenosis or dissection 3. Left aortic arch with an aberrant right subclavian artery 4. Irregular 9 mm right apical pulmonary opacity. Short-term CT follow-up is recommended. This finding will be called, as this was not described in the preliminary report. HEAD CTA IMPRESSION: 1. No significant stenosis or occlusion within the ruby of [place]. 2. 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 Brain MRI WITH AND WITHOUT CONTRAST IMPRESSION: 1. No acute intracranial abnormality. 2. 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 CHEST CT WITH CONTRAST IMPRESSION: 1. No significant change compared the 2012 examination. 2. Small scar like densities within the right upper lobe persists. 3. Prominent mediastinal lymph nodes are also unchanged. 4. Additional findings as described above. CERVICAL SPINE MRI WITH AND WITHOUT CONTRAST IMPRESSION: 1. Mild broad-based bulging disc from C3 through C6. 2. No significant impact upon the cervical cord. 3. Moderate narrowing of the neuro-foramina bilaterally at multiple levels Assessment/ Plan: Clinically & hemodynamically doing well. Sudden onset of Right Ptosis: Resolved. has intermittent headache. May or may not be related to torticollis sx from sleep position. -All the work up is negative so far. -May benefit from PT for the Cervical issues. -CT chest shows no new finding Hyperlipidemia: Continue statin therapy. Past tobacco abuse. DVT Prophylaxis: SCDs. Disposition: Discharge home later today. Follow up with PCP on 11/23/2016 @ 12.50 PM. Follow up with Neurology in 2 weeks. Total time spent on discharge = 38 minutes. This includes examination of the patient, discharge planning, medication reconciliation, and communication with other providers. Discharge Instructions Discharge Discharge Diagnosis / Problem: Right Sided Ptosis (Resolved) Discharge Goals Goal(s): Decrease discomfort, Improve function, Increase independence, Improve disease control, Learn about illness, Diagnostic testing, Therapeutic intervention Activity Recommendations Activity Limitations: resume your previous activity (As Tolerated.) Lifting Limitations: none Exercise/Sports Limitations: as tolerated May Resume Sexual Activity: when tolerated Shower/Bathe: no limitations . Instructions / Follow-Up Instructions / Follow-Up 1. Take medications as directed. 2. Apply warm compresses locally to back of neck. Additional Copies To Bibi Car M.D.
[2016-11-16 16:19] VITALS: BP 111/74; PULSE 75; TEMP 37; O2SAT 95
[2016-11-18 01:30] LABS: ACETYLCHOLINE RECEPT BLOCKING <15 % inhibit (<15); RECEPTOR BINDING AB <0.30 nmol/L (<=0.30)
[2017-02-26] MEDS ORDERED: LPR25 PO (18:19)
[2017-03-16] MEDS ORDERED: MTR600X PO (14:26)
[2017-03-16] MEDS ORDERED: CLC6 PO (14:26)
== END 2016-11-16 17:15 | disposition home or self-care (01) ==
LOC: ENRESERVDT → ENRESERVTM → C.EDB 22:17 → C.2T 11-15 02:14
PROVIDERS: ADMIT Emergency Medicine; ATTEND Emergency Medicine
DX: H02.401 Unspecified ptosis of right eyelid (principal); S16.1XXA Strain of muscle, fascia and tendon at neck level, initial encounter; X58.XXXA Exposure to other specified factors, initial encounter; E78.5 Hyperlipidemia, unspecified; E03.9 Hypothyroidism, unspecified; K21.9 Gastro-esophageal reflux disease without esophagitis; Z88.0 Allergy status to penicillin; Z79.82 Long term (current) use of aspirin; Z87.891 Personal history of nicotine dependence; Z82.49 Family history of ischemic heart disease and other diseases of the circulatory system; Z82.3 Family history of stroke

== ENCOUNTER 2017-02-26 13:39 | Inpatient (IN) | payer OTHER ==
[~2017-02-26] VITALS: Ht 170.2 cm; Wt 79.5 kg
[~2017-02-26 13:39] MED LIST changes: +ASPI1TAB4 PO; +ATOR-22 PO; -CLOT1CRE3 TOP; -FERR-24 PO; +FERR325T5 PO; +FLX5 PO; +IBUP-103 PO; +LEVO50TA6 PO; +MISCCAP80 PO; -RANITAB33 PO; +SERT-234 PO; +ZNTT/150 PO
[2017-02-26 14:31] LABS: ALT/SGPT 24 U/L (12-78); AST/SGOT 15 U/L (15-37); BLOOD UREA NITROGEN 10 mg/dl (7-18); BUN/CREATININE RATIO 13.3 (10-20); CALCIUM 8.2 mg/dl (8.5-10.1); CARBON DIOXIDE 29 mmol/L (21-32); CHLORIDE 106 mmol/L (98-107); CREATININE 0.79 mg/dl (0.60-1.20); GLUCOSE 94 mg/dl (70-99); POTASSIUM 3.9 mmol/L (3.5-5.1); SODIUM 141 mmol/L (136-145)
[2017-02-26 14:38] LABS: PARTIAL THROMBOPLASTIN RATIO 1.1; PROTHROMBIN TIME (PATIENT) 10.9 SECONDS (9.0-12.0)
[2017-02-26 14:39] LABS: BASO % 0.5 %; BASO ABS # 0.05 K/uL (0-0.2); COMPLETE YES; EOS % 0.5 %; HEMATOCRIT 42.6 % (37-47); IG% 0.5 %; LYMPH % 21.7 %; MEAN CELL VOLUME 91.8 fL (80-100); MEAN CORPUSCULAR HEMOGLOBIN 30.2 pg (25-34); MEAN CORPUSCULAR HGB CONC 32.9 g/dl (32-36); MEAN PLATELET VOLUME 10.7 fL (7.4-10.4); MONO % 13.8 %; PLATELET COUNT 377 K/uL (130-400); RED BLOOD COUNT 4.64 M/uL (4.2-5.4); WHITE BLOOD COUNT 11.07 K/uL (4.8-10.8)
[2017-02-26 14:42] LABS: ALKALINE PHOSPHATASE 141 U/L (45-117); CKMB/CK RATIO 2.2 (0-3.0)
[2017-02-26] MEDS ORDERED: METOPROLOL TARTRATE 1 MG/ML VIAL IV STA (14:51)
[2017-02-26] MEDS ORDERED: ADENOSINE IV SOLN 3 MG/ML 2 ML VIAL IV STA (14:51)
--- NOTE | 2017-02-26 14:51 | DIAGNOSTIC IMAGING REPORT ---
CHEST ONE VIEW PORTABLE CLINICAL HISTORY: Evaluate Fever/Sepsis fever. Sepsis. COMPARISON STUDY: 11/14/2016 FINDINGS: The bones soft tissues and hemidiaphragms are normal. The cardiomediastinal silhouette is normal. The lungs are clear. The pulmonary vasculature is normal. IMPRESSION: Negative chest. Electronically signed by: Zay Weldon M.D. 02/26/2017 2:50 PM Dictated Date/Time: 02/26/2017 2:49 PM
[2017-02-26 15:25] LABS: URINE APPEARANCE CLEAR (CLEAR); URINE BILIRUBIN NEG (NEG); URINE COLOR YELLOW; URINE NITRITE NEG (NEG); URINE PH 7.5 (4.5-7.5); URINE SPECIFIC GRAVITY 1.023 (1.000-1.030); UROBILINOGEN NEG (NEG)
[2017-02-26] MEDS ORDERED: IBUPROFEN 800 MG TAB PO STA (15:30)
[2017-02-26] MEDS ORDERED: ASPIRIN CAFFEINE PO PRN (15:30)
[2017-02-26] MEDS ORDERED: POLYETHYLENE (MIRALAX) 17 GM PACK PO PRN (15:30)
[2017-02-26] MEDS ORDERED: METOPROLOL TARTRATE 1 MG/ML VIAL IV PRN (15:30)
[2017-02-26] MEDS ORDERED: ONDANSETRON INJ 2 MG/ML 2 ML VIAL IV PRN (15:30)
[2017-02-26] MEDS ORDERED: ALUMINUM/MAGNESIUM/SIMETH (MAALOX MAX) 30 ML UDC PO PRN (15:30)
[2017-02-26] MEDS ORDERED: RANITIDINE HCL 150 MG TAB PO PRN (15:30)
[2017-02-26] MEDS ORDERED: MAGNESIUM HYDROXIDE SUSP 30 ML UDC PO PRN (15:30)
[2017-02-26] MEDS ORDERED: NITROGLYCERIN 0.4 MG SL PER TAB CHARGE SL PRN (15:30)
[2017-02-26] MEDS ORDERED: ZOLPIDEM TARTRATE 5 MG TAB PO PRN (15:30)
[2017-02-26] MEDS ORDERED: ACETAMINOPHEN 325 MG TAB PO PRN (15:30)
[2017-02-26] MEDS ORDERED: NON-FORMULARY MEDICATION (Probiotic Product (Probiotic) 1 CAP) PO SCH (15:30)
[2017-02-26] MEDS ORDERED: CYCLOBENZAPRINE HCL 5 MG TAB PO PRN (15:30)
[2017-02-26 15:34] LABS: MANUAL MICROSCOPIC REQUIRED? NO; REVIEW REQ? NO
[2017-02-26 15:41] VITALS: O2SAT 98; Ht 170.2 cm; Wt 79.5 kg
[2017-02-26] MEDS ORDERED: AZIT250T PO (16:09)
[2017-02-26] MEDS ORDERED: FLX5 PO (16:09)
[2017-02-26] MEDS ORDERED: OMEP40CA41 PO (16:09)
[2017-02-26] MEDS ORDERED: PRD20 PO (16:09)
[2017-02-26 16:19] VITALS: BP 122/84; PULSE 88; TEMP 36.8; O2SAT 98
[2017-02-26 16:30] VITALS: O2SAT 98
--- NOTE | 2017-02-26 16:48 | EMERGENCY ROOM VISIT NOTE ---
History Report prepared by Dariel: Braden Rider Under the Supervision of: Dr. Richard Pena D.O. First contact with patient: 14:15 Chief Complaint: CARDIAC ASSESSMENT Stated Complaint: TACHYCARDIA Nursing Triage Summary: Patient presented to [facility] with palpitations, neck pain, lightheadedness, and generally ill feeling. Was found to be in SVT. Sent via EMS to ED. Was given 0.6mg of adenosine in route by EMS and SVT terminated. History of Present Illness The patient is a 46 year old female who presents to the Emergency Room for an acute cardiac assessment. The patient was found to be in SVT earlier today when she was seen at [facility], for which she was referred to the ED. The patient was given 0.6 mg Adenosine in the ambulance en route to the ED, which brought the patient back to a normal sinus rhythm. The patient was seeing a doctor today because she has had neck pain since last night. She has also felt like her glands were swollen in her neck. She was having trouble swallowing yesterday, which has improved. The patient has noticed palpitations and fluttering in her chest for the past week. The patient takes Synthroid for her thyroid. She drinks iced tea regularly. She has never followed up with a Manager Of Training And Development. Source of History: patient Onset: today Position: other (heart) Quality: other (cardiac assessment) Timing: other (acute) Associated Symptoms: + neck pain Note: + palpitations Review of Systems See HPI for pertinent positives & negatives. A total of 10 systems reviewed and were otherwise negative. Past Medical & Surgical Medical Problems: (1) Bunion, right (2) SVT (supraventricular tachycardia) Family History Heart disease Hypertension Social History Smoking Status: Former Smoker Alcohol Use: none Drug Use: none Marital Status: Housing Status: lives with significant other Occupation Status: unemployed Current/Historical Medications Scheduled Atorvastatin (Lipitor), 20 MG PO HS Azithromycin (Zithromax), 1 PKT PO UD Ferrous Sulfate (Ferrous Sulfate), 325 MG PO DAILY Levothyroxine Sodium (Levothyroxine Sodium), 50 MCG PO DAILY Omeprazole (Prilosec), 40 MG PO DAILY Prednisone (Prednisone), 40 MG PO DAILY Sertraline (Zoloft), 150 MG PO HS Scheduled PRN Cyclobenzaprine HCl (Cyclobenzaprine HCl), 5 MG PO DAILY PRN for Muscle Spasms Ibuprofen Tab (Advil), 200 MG PO UD PRN for Pain Ranitidine (Zantac), 150 MG PO BID PRN for Indigestion Allergies Coded Allergies: Penicillins (Verified Allergy, Unknown, RASH, 02/26/17) Physical Exam Vital Signs Date Time Temp Pulse Resp B/P (MAP) Pulse Ox O2 Delivery O2 Flow Rate FiO2 02/26/17 15:15 76 16 115/77 98 Room Air 02/26/17 15:05 76 02/26/17 15:04 76 18 120/82 97 Room Air 02/26/17 15:04 89 120/82 02/26/17 14:59 124 02/26/17 14:53 162 02/26/17 14:45 164 02/26/17 13:48 98 Room Air 02/26/17 13:48 37.1 93 18 121/93 Room Air 02/26/17 13:47 106 Physical Exam CONSTITUTIONAL/VITAL SIGNS: Reviewed / noted above. GENERAL: Non-toxic in appearance. INTEGUMENTARY: Warm, dry, and [place]. HEAD: Normocephalic. EYES: without scleral icterus or trauma. ENT/OROPHARYNX: clear and moist. LYMPHADENOPATHY/NECK: Is supple without lymphadenopathy or meningismus. There appears to be some muscular discomfort in the left posterior neck with rotation of the head to the left and with palpation. RESPIRATORY: Lungs clear and equal. CARDIOVASCULAR: Regular rate and rhythm. GI/ABDOMEN: Soft and nontender. No organomegaly or pulsatile mass. No rebound or guarding. Normal bowel sounds. EXTREMITIES: Warm and well perfused. BACK: No CVA tenderness. NEUROLOGICAL: Intact without focal deficits. PSYCHIATRIC: normal affect. MUSCULOSKELETAL: Normally developed with good muscle tone. Medical Decision & Procedures ER Provider Diagnostic Interpretation: X ray results and stated below per my interpretation and radiology interpretation. CHEST ONE VIEW PORTABLE CLINICAL HISTORY: Evaluate Fever/Sepsis fever. Sepsis. COMPARISON STUDY: 11/14/2016 FINDINGS: The bones soft tissues and hemidiaphragms are normal. The cardiomediastinal silhouette is normal. The lungs are clear. The pulmonary vasculature is normal. IMPRESSION: Negative chest. Electronically signed by: Zay Weldon M.D. 02/26/2017 2:50 PM Dictated Date/Time: 02/26/2017 2:49 PM Laboratory Results 02/26/17 13:30 Red Blood Count 4.64, Mean Corpuscular Volume 91.8, Mean Corpuscular Hemoglobin 30.2, Mean Corpuscular Hemoglobin Concent 32.9, Mean Platelet Volume 10.7, Neutrophils (%) (Auto) 63.0, Lymphocytes (%) (Auto) 21.7, Monocytes (%) (Auto) 13.8, Eosinophils (%) (Auto) 0.5, Basophils (%) (Auto) 0.5, Neutrophils # (Auto ) 6.98, Lymphocytes # (Auto) 2.40, Monocytes # (Auto) 1.53, Eosinophils # (Auto ) 0.06, Basophils # (Auto) 0.05 02/26/17 13:30 Test 02/26/17 13:30 02/26/17 15:16 White Blood Count 11.07 K/uL (4.8-10.8) Red Blood Count 4.64 M/uL (4.2-5.4) Hemoglobin 14.0 g/dL (12.0-16.0) Hematocrit 42.6 % (37-47) Mean Corpuscular Volume 91.8 fL (80-100) Mean Corpuscular Hemoglobin 30.2 pg (25-34) Mean Corpuscular Hemoglobin Concent 32.9 g/dl (32-36) Platelet Count 377 K/uL (130-400) Mean Platelet Volume 10.7 fL (7.4-10.4) Neutrophils (%) (Auto) 63.0 % Lymphocytes (%) (Auto) 21.7 % Monocytes (%) (Auto) 13.8 % Eosinophils (%) (Auto) 0.5 % Basophils (%) (Auto) 0.5 % Neutrophils # (Auto) 6.98 K/uL (1.4-6.5) Lymphocytes # (Auto) 2.40 K/uL (1.2-3.4) Monocytes # (Auto) 1.53 K/uL (0.11-0.59) Eosinophils # (Auto) 0.06 K/uL (0-0.5) Basophils # (Auto) 0.05 K/uL (0-0.2) RDW Standard Deviation 43.7 fL (36.4-46.3) RDW Coefficient of Variation 13.0 % (11.5-14.5) Immature Granulocyte % (Auto) 0.5 % Immature Granulocyte # (Auto) 0.05 K/uL (0.00-0.02) Prothrombin Time 10.9 SECONDS (9.0-12.0) Prothromb Time International Ratio 1.0 (0.9-1.1) Activated Partial Thromboplast Time 28.7 SECONDS (21.0-31.0) Partial Thromboplastin Ratio 1.1 D-Dimer 380 ug/L FEU (0-500) Anion Gap 6.0 mmol/L (3-11) Est Creatinine Clear Calc Drug Dose 94.1 ml/min Estimated GFR () 103.3 Estimated GFR (Non- 89.1 BUN/Creatinine Ratio 13.3 (10-20) Calcium Level 8.2 mg/dl (8.5-10.1) Total Bilirubin 0.4 mg/dl (0.2-1) Direct Bilirubin < 0.1 mg/dl (0-0.2) Aspartate Amino Transf (AST/SGOT) 15 U/L (15-37) Alanine Aminotransferase (ALT/SGPT) 24 U/L (12-78) Alkaline Phosphatase 141 U/L (45-117) Total Creatine Kinase 107 U/L (26-192) Creatine Kinase MB 2.4 ng/ml (0.5-3.6) Creatine Kinase MB Ratio 2.2 (0-3.0) Troponin I 0.137 ng/ml (0-0.045) Total Protein 7.3 gm/dl (6.4-8.2) Albumin 3.4 gm/dl (3.4-5.0) Thyroid Stimulating Hormone (TSH) 2.460 uIu/ml (0.300-4.500) Urine Color YELLOW Urine Appearance CLEAR (CLEAR) Urine pH 7.5 (4.5-7.5) Urine Specific [place] 1.023 (1.000-1.030) Urine Protein NEG (NEG) Urine Glucose (UA) NEG (NEG) Urine Ketones TRACE (NEG) Urine Occult Blood NEG (NEG) Urine Nitrite NEG (NEG) Urine Bilirubin NEG (NEG) Urine Urobilinogen NEG (NEG) Urine Leukocyte Esterase NEG (NEG) Laboratory results as stated above per my review. Medications Administered Medications (Trade) Dose Ordered Sig/Torin Route Start Time Stop Time Status Last Admin Dose Admin Adenosine (Adenosine IV) 6 mg NOW STAT IV 02/26/17 14:51 02/26/17 14:52 DC 02/26/17 15:03 6 MG Metoprolol Tartrate (Lopressor Iv) 5 mg NOW STAT IV 02/26/17 14:51 02/26/17 14:52 DC 02/26/17 15:04 5 MG ECG Indication: palpitations Rate (beats per minute): 92 Rhythm: normal sinus Findings: no acute ischemic change, no ectopy Change: Patient is no longer in SVT. ED Course 1418: Previous medical records were reviewed. The patient was evaluated in room C8. A complete history and physical examination was performed. 1450: The patient is back in SVT. Adenosine will be ordered. 1451: Lopressor 5 mg IV, Adenosine 6 mg IV. 1510: The patient is once again in a normal sinus rhythm. Medicine will be paged. 1515: Discussed the case with Claudia Melchor PA-C, [facility] Hospitalist. The patient will be evaluated. Medical Decision Differential diagnosis: Etiologies such as cardiac ischemia, aortic dissection, pulmonary embolism, pneumonia, pneumothorax, musculoskeletal, infections, pericarditis, myocarditis , esophageal rupture, gastrointestinal, as well as others were entertained. Medication Reconciliation: I attest that I have personally reviewed the patient' s current medication list. Blood pressure Screening: Patient was found to have normal blood pressure on screening and does not require follow-up. This is a 46-year-old female who presents to the ED with a chief complaint of his SVT. The patient was seen by her PCP for some palpitations and a sore throat. She is found to be an SVT. EMS gave her adenosine and this broke the SVT in route here. While the patient was being evaluated here, she developed SVT again. 6 mg IV adenosine broke the SVT again. After this she was given Lopressor 5 mg IV. The patient's cardiac enzymes are slightly elevated. This could be rate related. The patient reports that she has been having symptoms regularly for the past 5 days with the palpitations lasting for hours at a time. EKG after conversion revealed a normal sinus rhythm. CBC and TSH are normal. Chest x-ray did not show acute disease. Troponin was 0.137. I spoke with the hospice, who will see the patient for further inpatient evaluation of her recurrent SVT and elevated troponin. Consults Time Called: 151 Consulting Physician: Claudia Melchor PA-C, [facility] Hospitalist Returned Call: 1515 The patient will be evaluated. Impression Primary Impression: SVT (supraventricular tachycardia) Additional Impression: Elevated troponin Scribe Attestation The scribe's documentation has been prepared under my direction and personally reviewed by me in its entirety. I confirm that the note above accurately reflects all work, treatment, procedures, and medical decision making performed by me. Departure Information Dispostion Being Evaluated By Hospitalist Prescriptions Cyclobenzaprine HCl (Cyclobenzaprine HCl) 5 Mg Tab 5 MG PO DAILY Y for Muscle Spasms, #30 TAB Prov: Emily Melchor PA-C 02/26/17 Referrals Bibi Car M.D. (PCP) Patient Instructions My [facility] Health Problem Qualifiers
[2017-02-26] MEDS ORDERED: METOPROLOL TARTRATE 25 MG TAB PO ONE (17:30)
[2017-02-26] MEDS ORDERED: LPR25 PO (18:19)
--- NOTE | 2017-02-26 18:32 | History and Physical ---
History & Physical Date & Time of Service: Feb 26, 2017 at 18:32 Chief Complaint: Svt (Supraventricular Tachycardia) Primary Care Physician: Bibi Car M.D. History of Present Illness Source: patient This is 46 yo F with past medical hx of GERD, Dyslipidemia , Hypothyroidism was seen at [facility] with complain of non productive cough , sore throat for X 1 week had pain neck , swollen gland , ear ache , felt palpitation/fluttering of chest , felt dizzy and lightheaded pt was found to be in SVT sent to ER HR was > 160 in ER with symptom of feeling flushed, lightheaded , nausea , SOB given Adenosine X1 , IV Lopressor pt converted to rate controlled sinus rhythm during my interview , pt was comfortable , no complain of chest pain , no palpitation, dizzy spell or lightheadedness mentions that she has been having this symptom on and off for past 1 year will get sudden attacks of palpitation /fluttering of chest -leads to dizzy spell , lightheadedness, SOB needs to rest takes some time to resolve no episode of syncope pt has been complaining to her Family physician -but was told possible esophageal spasm can not co relate to any particular activity to cause the symptom feels relief that diagnosis of SVT was found -as episodes has been more frequent and causing anxiety no complain of SOB , orthopnea , MANCILLA Past Medical/Surgical History Medical Problems: (1) Abnormal brain MRI Permanent Comment: 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 Status: Chronic (2) Abnormal computed tomography angiography of head Permanent Comment: 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 Short-term CT follow-up is recommended Status: Chronic (13) PUD (peptic ulcer disease) Status: Chronic Surgical Problems: (1) H/O foot surgery Status: Chronic (2) S/P rotator cuff repair Status: Chronic (3) S/p treatment of ectopic Status: Chronic Family History Heart disease FATHER ( in sleep age 35, ruptured gastric ulcers, [place]) Hypertension Social History Smoking Status: Former Smoker Drug Use: none Marital Status: Housing status: lives with family Occupational Status: unemployed Allergies Coded Allergies: Penicillins (Verified Allergy, Unknown, RASH, 02/26/17) Home Medications Scheduled Atorvastatin (Lipitor), 20 MG PO HS Azithromycin (Zithromax), 1 PKT PO UD Ferrous Sulfate (Ferrous Sulfate), 325 MG PO DAILY Levothyroxine Sodium (Levothyroxine Sodium), 50 MCG PO DAILY Metoprolol Tartrate (Lopressor), 12.5 MG PO BID Omeprazole (Prilosec), 40 MG PO DAILY Prednisone (Prednisone), 40 MG PO DAILY Sertraline (Zoloft), 150 MG PO HS Scheduled PRN Cyclobenzaprine HCl (Cyclobenzaprine HCl), 5 MG PO DAILY PRN for Muscle Spasms Ibuprofen Tab (Advil), 200 MG PO UD PRN for Pain Ranitidine (Zantac), 150 MG PO BID PRN for Indigestion Review of Systems Constitutional: No fever, No chills, No sweats, No weight loss, No weakness, No fatigue, No problem reported Respiratory: + cough, + problem reported (sore throat ) Cardiovascular: + chest pain, + palpitations Abdomen: No pain, No nausea, No vomiting, No diarrhea, No constipation, No GI bleeding, No problem reported Musculoskeletal: + problem reported (neck pain ) Genitourinary - Female: No dysuria, No urinary frequency, No urinary urgency, No urinary incontinence, No urinary retention, No hematuria, No dysmenorrhea, No menorrhagia, No metrorrhagia, No rash, No vaginal bleeding, No vaginal discharge, No vaginal itching, No vulvodynia, No , No problem reported Neurologic: + vertigo, + problem reported (lightheadeness with palpitation ) Psychiatric: + anxiety Endocrine: + fatigue Physical Exam Vital Signs Date Time Temp Pulse Resp B/P (MAP) Pulse Ox O2 Delivery O2 Flow Rate FiO2 02/26/17 16:19 36.8 88 17 122/84 (97) 98 Room Air 6/19/17 16:04 72 18 102/80 98 Room Air 02/26/17 15:45 75 16 115/79 97 Room Air 02/26/17 15:41 98 Room Air 02/26/17 15:30 75 16 115/79 98 Room Air 02/26/17 15:15 76 16 115/77 98 Room Air 02/26/17 15:05 76 02/26/17 15:04 76 18 120/82 97 Room Air 02/26/17 15:04 89 120/82 02/26/17 14:59 124 02/26/17 14:53 162 02/26/17 14:45 164 02/26/17 13:48 98 Room Air 02/26/17 13:48 37.1 93 18 121/93 Room Air 02/26/17 13:47 106 General Appearance: no apparent distress Head: normocephalic, atraumatic Eyes: sclerae normal Neck: thyroid normal, no carotid bruits Respiratory/Chest: chest non-tender, lungs clear, normal breath sounds, no respiratory distress Cardiovascular: regular rate, rhythm, no edema, no JVD, no murmur, normal peripheral pulses Abdomen/GI: normal bowel sounds, non tender, soft Back: no CVA tenderness Extremities/Musculoskelatal: normal capillary refill, no pedal edema Neurologic/Psych: no motor/sensory deficits, alert, normal mood/affect, oriented x 3 Skin: normal color, warm/dry, no rash Lymphatic: + cervical node abnormality Diagnostics Laboratory Results Results Past 24 Hours Test 02/26/17 13:30 02/26/17 15:16 Range/Units White Blood Count 11.07 4.8-10.8 K/uL Red Blood Count 4.64 4.2-5.4 M/uL Hemoglobin 14.0 12.0-16.0 g/dL Hematocrit 42.6 37-47 % Mean Corpuscular Volume 91.8 80-100 fL Mean Corpuscular Hemoglobin 30.2 25-34 pg Mean Corpuscular Hemoglobin Concent 32.9 32-36 g/dl Platelet Count 377 130-400 K/uL Mean Platelet Volume 10.7 7.4-10.4 fL Neutrophils (%) (Auto) 63.0 % Lymphocytes (%) (Auto) 21.7 % Monocytes (%) (Auto) 13.8 % Eosinophils (%) (Auto) 0.5 % Basophils (%) (Auto) 0.5 % Neutrophils # (Auto) 6.98 1.4-6.5 K/uL Lymphocytes # (Auto) 2.40 1.2-3.4 K/uL Monocytes # (Auto) 1.53 0.11-0.59 K/uL Eosinophils # (Auto) 0.06 0-0.5 K/uL Basophils # (Auto) 0.05 0-0.2 K/uL RDW Standard Deviation 43.7 36.4-46.3 fL RDW Coefficient of Variation 13.0 11.5-14.5 % Immature Granulocyte % (Auto) 0.5 % Immature Granulocyte # (Auto) 0.05 0.00-0.02 K/uL Prothrombin Time 10.9 9.0-12.0 SECONDS Prothromb Time International Ratio 1.0 0.9-1.1 Activated Partial Thromboplast Time 28.7 21.0-31.0 SECONDS Partial Thromboplastin Ratio 1.1 D-Dimer 380 0-500 ug/L FEU Sodium Level 141 136-145 mmol/L Potassium Level 3.9 3.5-5.1 mmol/L Chloride Level 106 98-107 mmol/L Carbon Dioxide Level 29 21-32 mmol/L Anion Gap 6.0 3-11 mmol/L Blood Urea Nitrogen 10 7-18 mg/dl Creatinine 0.79 0.60-1.20 mg/dl Est Creatinine Clear Calc Drug Dose 94.1 ml/min Estimated GFR () 103.3 Estimated GFR (Non- 89.1 BUN/Creatinine Ratio 13.3 10-20 Random Glucose 94 70-99 mg/dl Calcium Level 8.2 8.5-10.1 mg/dl Total Bilirubin 0.4 0.2-1 mg/dl Direct Bilirubin < 0.1 0-0.2 mg/dl Aspartate Amino Transf (AST/SGOT) 15 15-37 U/L Alanine Aminotransferase (ALT/SGPT) 24 12-78 U/L Alkaline Phosphatase 141 45-117 U/L Total Creatine Kinase 107 26-192 U/L Creatine Kinase MB 2.4 0.5-3.6 ng/ml Creatine Kinase MB Ratio 2.2 0-3.0 Troponin I 0.137 0-0.045 ng/ml Total Protein 7.3 6.4-8.2 gm/dl Albumin 3.4 3.4-5.0 gm/dl Thyroid Stimulating Hormone (TSH) 2.460 0.300-4.500 uIu/ml Urine Color YELLOW Urine Appearance CLEAR CLEAR Urine pH 7.5 4.5-7.5 Urine Specific [place]ountain 1.023 1.000-1.030 Urine Protein NEG NEG Urine Glucose (UA) NEG NEG Urine Ketones TRACE NEG Urine Occult Blood NEG NEG Urine Nitrite NEG NEG Urine Bilirubin NEG NEG Urine Urobilinogen NEG NEG Urine Leukocyte Esterase NEG NEG CXR normal Normal EKG Impression Assessment and Plan SVT : -presented with symptomatic SVT -broke with X1 Adenosine -pt will be admitted to Tele -started on low dose Beta jessica Lopressor 12.5 mg PO BID -ECHO ordered -Cardiology eval requested -TSH level remains normal -Normal D dimer -low suspicion for thromboembolic event ELEVATED TROPONIN : due to above -no complain of chest pain or angina /MANCILLA -EKG no ischemic change -monitor in tele -serial cardiac markers /ECHO ordered HYPOTHYROIDISM : cont Levothyroxine TSH -wnl URI: -presented with cough , sore throat normal Cxray possible bronchitis complete Zithromax course FULL CODE DVT PROPHYLAXIS low risk scd and Teds ambulate DISPOSITION : Discharge home when medically stable Medicine follow up with Dr Roberts at [facility] Level of Care Telemetry Advanced Directives Existing Living Will: No Existing Power of News Editor: No Resuscitation Status FULL RESUSCITATION VTE Prophylaxis VTE Risk Assessment Done? Y/N: Yes Risk Level: Low Given or contraindicated: Mimi Stockings, SCD's Additional Copies To Quita Merino D.O. Henry, Sheldon D., M.D.
--- NOTE | 2017-02-26 18:37 | Discharge Instructions ---
Discharge Instructions Date of Service Feb 26, 2017. Admission Reason for Admission: Svt (Supraventricular Tachycardia) Discharge Discharge Diagnosis / Problem: SUPRAVENTRICULAR TACHYCARDIA Discharge Goals Goal(s): Decrease discomfort, Diagnostic testing Activity Recommendations Activity Limitations: resume your previous activity Driving or Machine Use: no limitations . Instructions / Follow-Up Instructions / Follow-Up HOSPITAL FOLLOW UP 03/05/2017 @ 1:[address] Quita Merino, Internal Medicine [facility] CARDIOLOGY FOLLOW UP WITH DR SHAFFER IN 3-4 WEEKS, PLEASE CALL OFFICE FOR APPOINTMENT Current Hospital Diet Patient's current hospital diet: AHA Diet (Heart Healthy) Discharge Diet Recommended Diet: AHA Diet (Heart Healthy) Pending Studies Studies pending at discharge: no Medical Emergencies . Who to Call and When: Medical Emergencies: If at any time you feel your situation is an emergency, please call 911 immediately. . Non-Emergent Contact Non-Emergency issues call your: Primary Care Provider . . "Provider Documentation" section prepared by Dali Mcdonnell. . VTE Core Measure Inpt VTE Proph given/why not?: Unfractionated heparin SQ
[2017-02-26 20:29] VITALS: BP 105/75; PULSE 71; TEMP 36.5; O2SAT 94
[2017-02-26] MEDS ORDERED: AZITHROMYCIN 250 MG TAB PO ONE (21:00)
[2017-02-26] MEDS ORDERED: SERTRALINE HCL 100 MG TAB PO SCH (21:00)
[2017-02-26] MEDS ORDERED: ATORVASTATIN 20 MG TAB PO SCH (21:00)
--- NOTE | 2017-02-26 21:14 | CARDIOLOGY CONSULTATION ---
DATE OF CONSULTATION: 02/26/2017 REFERRING: Dr. Mcdonnell. PRIMARY CARE PHYSICIAN: Dr. Car. INDICATIONS: Tachypalpitations, supraventricular tachycardia. HISTORY OF PRESENT ILLNESS: The patient is a 46-year-old female, whose past medical history is notable for hypothyroidism, on thyroid replacement, hyperlipidemia on therapy, history of esophageal disease, who presents now noting several years' history of intermittent sense of tachypalpitations. She has undergone evaluations which include, echocardiogram, CT scan of the chest and Holter monitor, all unrevealing by looking through data dated back to 2011. Today, she presented with symptoms of sore throat, and earache of several days' duration with tenderness submandibular, difficulty swallowing. While in the doctor's office, was noted to have palpitations as well. EKG performed demonstrated supraventricular tachycardia, at rate of 166. The patient was transported by ambulance to [facility] with the arrhythmia terminated in the ambulance with 6 mg of adenosine. While in the ER, the patient had a similar recurrence, which was once again terminated with 6 mg of adenosine and the patient was given 5 mg IV metoprolol. She subsequently had been arranged for hospitalization, overall feels improved, though throat remained sore with difficulty with dysphagia and difficulty swallowing due to tenderness. The patient seen in the progressive care unit. She is currently comfortable. She notes no sensation of chest pain that when tachypalpitations occur. She does fill fullness in her throat with a pressure sensation. She notes in the past this has been described as esophageal spasm to her. Notes no associated syncope, though at times she feels lightheaded and oftentimes feel weak and washed out after episodes which may last minutes in duration. She denies history of TIA or stroke. Notes no history of rheumatic fever or scarlet fever. Notes no history of renal or hepatic disease. Notes no bleeding difficulties. Notes no melena, hematochezia, dysuria or hematuria. Does have difficulties with chronic headaches. Notes no acute visual changes. Notes no acute weight loss or gain. Notes no sleep disruption. Overall, she is very active at home caring for 2-year-old and a 5-year-old carries groceries, climbs stairs without specific limitation. Main complaints this week have been low grade malaise, fevers and chills with associated severe sore throat and neck tenderness. REVIEW OF SYSTEMS: Otherwise negative. ALLERGIES: PENICILLINS. MEDICATIONS PRIOR TO HOSPITALIZATION: Atorvastatin 20 mg at bedtime, ferrous sulfate 325 mg per day, ibuprofen p.r.n. pain, levothyroxine 50 mcg per day, omeprazole 40 mg p.o. daily, ranitidine 150 b.i.d., Zoloft 100 mg p.o. at bedtime. PAST SURGICAL HISTORY: Notable for bunionectomy only. FAMILY HISTORY: Notable for father, who succumbed to a possible heart attack in the setting of bleeding ulcer in his 30s. SOCIAL HISTORY: She has been a nonsmoker x8 years. She uses no significant alcohol or over the counter medications. Does drink a moderate amount of unsweetened ice tea. PHYSICAL EXAMINATION: VITAL SIGNS: Heart rate is 80, blood pressure is 122/84 and equal in both arms. HEENT: Normocephalic, atraumatic. NECK: Full with prominent thyroid in palpation. She has tender lymphadenopathy in the submandibular area. There is no carotid bruit. There is no jugular venous distention at 30 degrees. LUNGS: Clear to auscultation. CARDIOVASCULAR: Regular with normal S1, S2. There is no audible murmur, gallop or rub. PMI is nondisplaced. ABDOMEN: Soft, nontender. There is no hepatosplenomegaly. There is no hepatojugular reflux. EXTREMITIES: Without cyanosis or clubbing. There is no peripheral edema. There is no cord or Homans' sign. NEUROLOGIC: The patient is alert and oriented and answered questions appropriately. IMAGING DATA: EKG initially demonstrated supraventricular tachycardia at the rate of 166 with rapid ventricular response. EKG following admission with administration of adenosine demonstrates sinus rhythm with borderline criteria for left atrial enlargement, but no other abnormalities. No ST segment abnormalities, no Q-waves, no preexcitation. Chest x-ray reveals no infiltrate or edema with normal size cardiac silhouette. A review of all recent x-rays included cervical MRI with moderate disc disease. CTA of the chest without evidence of pulmonary embolus or chest pathology. Head and neck CTA performed for transient Jaquan's sign in November 2016. LABORATORY DATA: Today, white cell count is 11.0, hemoglobin is 14.0, hematocrit 42.6. Sodium is 141, potassium is 3.9, chloride is 106, bicarb is 29, BUN is 10, creatinine 0.8. Troponin is 0.13. TSH is 2.4. CK and MB fractions are 107, and 2.4. IMPRESSION: A 46-year-old female, presents with signs and symptoms of upper respiratory infection, oropharyngitis. Describes history of intermittent palpitations for at least 5-10 years. Symptoms were more persistent today during physical examination, and the patient was found to be in a supraventricular tachycardia with complaints of palpitations and pounding in her throat when it occurred. Rhythm was terminated initially with adenosine, then recurred in the Emergency Room, is now comfortable after IV metoprolol. RECOMMENDATIONS: Discussed findings in detail with the patient. Would initiate low dose beta blockers, I already ordered with metoprolol 12.5 mg twice per day. Echocardiogram will be ordered, though she has previous echocardiogram from 2012 which demonstrated normal heart structure and valve structure. Discussed mechanisms and treatment for supraventricular tachycardia, modestly symptomatic with a sense of palpitations when occuring. We will plan on initiating beta jessica. If the patient fails initially, a beta jessica may be considered for ablation versus antiarrhythmic. We will see the patient in the a.m. and I agree to follow patient as outpatient. [facility]
[2017-02-26] MEDS: METOPROLOL TARTRATE 25 MG TAB PO SCH (21:29)
[2017-02-26 21:52] LABS: CKMB/CK RATIO 2.5 (0-3.0)
[2017-02-26] MEDS ORDERED: HEPARIN SOD 5000 UNIT/0.5 ML CARP SQ SCH (22:00)
[2017-02-26 23:02] VITALS: BP 103/66; PULSE 82; TEMP 36.8; O2SAT 96
[2017-02-27 03:35] VITALS: BP 108/67; PULSE 75; TEMP 36.8; O2SAT 98
[2017-02-27] MEDS ORDERED: LEVOTHYROXINE 50 MCG TAB PO SCH (06:00)
[2017-02-27 07:16] LABS: HEMATOCRIT 37.7 % (37-47); MEAN CELL VOLUME 92.9 fL (80-100); MEAN CORPUSCULAR HEMOGLOBIN 28.6 pg (25-34); MEAN CORPUSCULAR HGB CONC 30.8 g/dl (32-36); PLATELET COUNT 297 K/uL (130-400); RED BLOOD COUNT 4.06 M/uL (4.2-5.4); WHITE BLOOD COUNT 9.76 K/uL (4.8-10.8)
[2017-02-27 07:36] VITALS: BP 114/79; PULSE 70; TEMP 36.7; O2SAT 94
[2017-02-27 07:55] LABS: BUN/CREATININE RATIO 18.3 (10-20); CALCIUM 8.2 mg/dl (8.5-10.1); CREATININE 0.62 mg/dl (0.60-1.20); POTASSIUM 3.7 mmol/L (3.5-5.1)
[2017-02-27 08:12] LABS: CHOLESTEROL/HDL RATIO 2.9; CKMB/CK RATIO 2.5 (0-3.0)
[2017-02-27] MEDS: METOPROLOL TARTRATE 25 MG TAB PO SCH (08:19)
[2017-02-27] MEDS ORDERED: ASPIRIN 81 MG ECTAB PO SCH (09:00)
[2017-02-27] MEDS ORDERED: NON-FORMULARY MEDICATION (Probiotic Product (Probiotic) 1 CAP) PO SCH (09:00)
[2017-02-27] MEDS ORDERED: FERROUS SULFATE 325 MG TAB PO SCH (09:00)
--- NOTE | 2017-02-27 09:52 | ECHOCARDIOGRAM REPORT ---
*NOTICE TO RECEIVING [employer] This information is strictly Confidential and protected under [place] law. [place] law prohibits you from making any further disclosure of this information unless further disclosure is expressly permitted by the written consent of the person to whom it pertains or is authorized by law. A general authorization for the release of medical or other information is not sufficient for this purpose. Hospital accepts no responsibility if the information is made available to any other person, INCLUDING THE PATIENT. Interpretation Summary * Name: JESSENIA OLIVA Study Date: 02/27/2017 06:54 AM BP: 114/79 mmHg * Patient Location: C.2T\S\S238\S\2 HR: 70 * : 1970 (M/d/yyyy) Gender: Female Height: 67 in * Age: 46 yrs Ethnicity: CA Weight: 169 lb * Ordering Physician: Dali Mcdonnell * Referring Physician: Self, Referred * Performed By: Zakia Mane [facility] * * Reason For Study: SVT * BSA: 1.9 m2 * This was essentially a normal study. * -- Conclusions -- * The left ventricle is normal in size. * There is borderline concentric left ventricular hypertrophy. * The left ventricular wall motion is normal. * Ejection Fraction = 55-60%. Procedure Details * A complete two-dimensional transthoracic echocardiogram was performed (2D, M-mode, Doppler and color flow Doppler). Left Ventricle * The left ventricle is normal in size. * There is borderline concentric left ventricular hypertrophy. * Ejection Fraction = 55-60%. * Left ventricular systolic function is normal. * The left ventricular wall motion is normal. Right Ventricle * The right ventricle is normal in size and function. Atria * The left atrial size is normal. * Right atrial size is normal. * No ASD detected; PFO is not assessed. Mitral Valve * The mitral valve anatomy is normal. * There is no mitral valve stenosis. * There is trace mitral regurgitation. Tricuspid Valve * The tricuspid valve anatomy is normal. * There is no tricuspid stenosis. * There is trace tricuspid regurgitation. Aortic Valve * The aortic valve is trileaflet. * No hemodynamically significant valvular aortic stenosis. * No aortic regurgitation is present. Pulmonic Valve * The pulmonic valve is not well visualized. Great Vessels * The aortic root is normal size. Pericardium/Pleural * There is no pericardial effusion. Great Vessels * Normal inferior vena cava diameter and respiratory variation suggests normal central venous pressure. MMode 2D Measurements and Calculations IVSd 1.4 cm IVSs 1.5 cm LVIDd 3.9 cm LVIDs 2.7 cm LVPWd 1.0 cm LVPWs 1.3 cm IVS/LVPW 1.3 FS 29.6 % EDV(Teich) 64.7 ml ESV(Teich) 27.6 ml EF(Teich) 57.4 % EDV(cubed) 58.0 ml ESV(cubed) 20.2 ml EF(cubed) 65.2 % % IVS thick 13.5 % % LVPW thick 31.1 % LV mass(C)d 155.0 grams LV mass(C)dI 82.3 grams/m\S\2 LV mass(C)s 129.8 grams LV mass(C)sI 69.0 grams/m\S\2 SV(Teich) 37.1 ml SI(Teich) 19.7 ml/m\S\2 SV(cubed) 37.8 ml SI(cubed) 20.1 ml/m\S\2 Ao root diam 3.3 cm Ao root area 8.6 cm\S\2 LA dimension 3.0 cm LA/Ao 0.89 LVOT diam 2.0 cm LVOT area 3.0 cm\S\2 LVAd ap4 29.1 cm\S\2 LVLd ap4 7.6 cm EDV(MOD-sp4) 90.3 ml EDV(sp4-el) 94.5 ml LVAs ap4 18.4 cm\S\2 LVLs ap4 6.5 cm ESV(MOD-sp4) 43.8 ml ESV(sp4-el) 44.4 ml EF(MOD-sp4) 51.5 % EF(sp4-el) 53.0 % LVAd ap2 29.4 cm\S\2 LVLd ap2 7.4 cm EDV(MOD-sp2) 94.2 ml EDV(sp2-el) 99.3 ml LVAs ap2 19.4 cm\S\2 LVLs ap2 6.6 cm ESV(MOD-sp2) 46.9 ml ESV(sp2-el) 48.2 ml EF(MOD-sp2) 50.2 % EF(sp2-el) 51.4 % LVLd %diff -3.32 % EDV(MOD-bp) 94.1 ml LVLs %diff 2.1 % ESV(MOD-bp) 45.8 ml EF(MOD-bp) 51.3 % SV(MOD-sp4) 46.5 ml SI(MOD-sp4) 24.7 ml/m\S\2 SV(MOD-sp2) 47.3 ml SI(MOD-sp2) 25.1 ml/m\S\2 SV(MOD-bp) 48.3 ml SI(MOD-bp) 25.6 ml/m\S\2 SV(sp4-el) 50.1 ml SI(sp4-el) 26.6 ml/m\S\2 SV(sp2-el) 51.0 ml SI(sp2-el) 27.1 ml/m\S\2 Doppler Measurements and Calculations MV E max zari 94.4 cm/sec MV A max zari 81.4 cm/sec MV E/A 1.2 MV P1/2t max zari 104.8 cm/sec MV P1/2t 51.3 msec MVA(P1/2t) 4.3 cm\S\2 MV dec slope 597.8 cm/sec\S\2 MV dec time 0.19 sec Ao V2 max 115.4 cm/sec Ao max PG 5.3 mmHg Ao max PG (full) 2.3 mmHg STACY(V,A) 2.2 cm\S\2 STACY(V,D) 2.2 cm\S\2 LV V1 max PG 3.0 mmHg LV V1 max 86.3 cm/sec PA V2 max 81.2 cm/sec PA max PG 2.6 mmHg
--- NOTE | 2017-02-27 10:31 | Progress Note ---
Internal Med Progress Note Date of Service: Feb 27, 2017. Provider Documentation: SUBJECTIVE: Seen and examined at bedside. States having sore throat, non productive cough. Denies chest pain, palpitations, SOB. No new complaints. OBJECTIVE: Vital Signs-as noted below Physical Exam: General Appearance:Moderately built and nourished, no apparent distress Head: normocephalic, Atraumatic Eyes: normal inspection, EOMI, PERRL Neck: supple, Trachea midline Respiratory/Chest: Normal breath sounds, CTA Cardiovascular: S1, S2, No murmur Abdomen/GI:Soft, Non tender, Bowel sounds present Extremities/Musculoskelatal:normal inspection, no edema Neurologic/Psych:grossly no focal neurological deficits Skin: normal color, warm Lab data as noted below. ASSESSMENT & PLAN: SVT : Patient presented with symptomatic SVT Currently in sinus Continue Metoprolol ECHO: left ventricular wall motion is normal, EF:55-60% Appreciate Cardiology input TSH:normal Normal D dimer Appreciate Input. Planned for EPS with possible ablation on March 14 ELEVATED TROPONIN : Likely secondary to above Denies chest pain EKG no ischemic change HYPOTHYROIDISM : cont Levothyroxine TSH -wnl URI:Likely Presented with cough, sore throat CXR: normal complete Zithromax Day 10/15 CODE STATUS: FULL CODE DVT PX Scd ambulate DISPOSITION : Plan to discharge home today Follow up with Dr Roberts at [facility] on 03/04/17 at 12:45pm Follow up with cardiology on March 20 at 12:45pm at [place] Follow up with EP for EPS with possible ablation scheduled on March 14, 2017. ECHO: * The left ventricle is normal in size. * There is borderline concentric left ventricular hypertrophy. * The left ventricular wall motion is normal. * Ejection Fraction = 55-60%. CXR: IMPRESSION: Negative chest. Vital Signs: Date Time Temp Pulse Resp B/P (MAP) Pulse Ox O2 Delivery O2 Flow Rate FiO2 02/27/17 12:05 Room Air 02/27/17 11:57 36.8 70 18 108/72 (84) 94 Room Air 02/27/17 08:10 Room Air 02/27/17 07:36 36.7 70 20 114/79 (91) 94 Room Air 02/27/17 04:05 Room Air 02/27/17 03:35 36.8 75 18 108/67 (81) 98 Room Air 02/27/17 00:04 Room Air 02/26/17 23:02 36.8 82 17 103/66 (78) 96 Room Air 02/26/17 20:49 Room Air 02/26/17 20:29 36.5 71 18 105/75 (85) 94 Room Air 02/26/17 16:30 98 Room Air 02/26/17 16:19 36.8 88 17 122/84 (97) 98 Room Air 02/26/17 16:04 72 18 102/80 98 Room Air 02/26/17 15:45 75 16 115/79 97 Room Air 02/26/17 15:41 98 Room Air 02/26/17 15:30 75 16 115/79 98 Room Air 02/26/17 15:15 76 16 115/77 98 Room Air 02/26/17 15:05 76 02/26/17 15:04 76 18 120/82 97 Room Air 02/26/17 15:04 89 120/82 02/26/17 14:59 124 02/26/17 14:53 162 02/26/17 14:45 164 Lab Results: Results Past 24 Hours Test 02/26/17 15:16 02/26/17 21:11 02/27/17 06:51 Range/Units Urine Color YELLOW Urine Appearance CLEAR CLEAR Urine pH 7.5 4.5-7.5 Urine Specific [place] 1.023 1.000-1.030 Urine Protein NEG NEG Urine Glucose (UA) NEG NEG Urine Ketones TRACE NEG Urine Occult Blood NEG NEG Urine Nitrite NEG NEG Urine Bilirubin NEG NEG Urine Urobilinogen NEG NEG Urine Leukocyte Esterase NEG NEG Total Creatine Kinase 79 69 26-192 U/L Creatine Kinase MB 2.0 1.7 0.5-3.6 ng/ml Creatine Kinase MB Ratio 2.5 2.5 0-3.0 Troponin I 0.186 0.108 0-0.045 ng/ml White Blood Count 9.76 4.8-10.8 K/uL Red Blood Count 4.06 4.2-5.4 M/uL Hemoglobin 11.6 12.0-16.0 g/dL Hematocrit 37.7 37-47 % Mean Corpuscular Volume 92.9 80-100 fL Mean Corpuscular Hemoglobin 28.6 25-34 pg Mean Corpuscular Hemoglobin Concent 30.8 32-36 g/dl RDW Standard Deviation 44.3 36.4-46.3 fL RDW Coefficient of Variation 13.2 11.5-14.5 % Platelet Count 297 130-400 K/uL Mean Platelet Volume 10.0 7.4-10.4 fL Sodium Level 141 136-145 mmol/L Potassium Level 3.7 3.5-5.1 mmol/L Chloride Level 108 98-107 mmol/L Carbon Dioxide Level 27 21-32 mmol/L Anion Gap 6.0 3-11 mmol/L Blood Urea Nitrogen 11 7-18 mg/dl Creatinine 0.62 0.60-1.20 mg/dl Est Creatinine Clear Calc Drug Dose 121.8 ml/min Estimated GFR () 124.5 Estimated GFR (Non- 107.4 BUN/Creatinine Ratio 18.3 10-20 Random Glucose 86 70-99 mg/dl Calcium Level 8.2 8.5-10.1 mg/dl Triglycerides Level 75 0-150 mg/dl Cholesterol Level 120 0-200 mg/dl HDL Cholesterol 42 mg/dl LDL Cholesterol, Calculated 63 mg/dl VLDL Cholesterol, Calculated 15 mg/dl Cholesterol/HDL Ratio 2.9
--- NOTE | 2017-02-27 11:43 | Progress Note ---
Progress Note Date of Service Feb 27, 2017. Progress Note full EP consult dictated. Pt with SVT discussed about EPS with possible ablation; pt will be scheduled for procedure on March 14 in afternoon.
--- NOTE | 2017-02-27 11:50 | CARDIOLOGY PROGRESS NOTE ---
DATE: 02/27/2017 DATE: 02/27/2017. The patient seen and examined. Chart, medications, telemetry reviewed. SUBJECTIVE: The patient feels well. Did have short runs of SVT early this morning. Notes no chest pains, dizziness, lightheadedness, syncope or near syncope. Echocardiogram demonstrates preserved LV systolic function, no valvular disease or pathology. Troponins are flat. EKG reveals normal sinus rhythm. OBJECTIVE: VITAL SIGNS: Heart rate 70, blood pressure 114/79. NECK: Thin. There is no jugular venous distention. LUNGS: Clear. CARDIOVASCULAR EXAMINATION: Regular with normal S1, S2, no murmur, gallop or rub. ABDOMEN: Soft. EXTREMITIES: Without cyanosis or clubbing. There is no peripheral edema is noted. DATA: As noted, EKG reveals sinus rhythm with normal tracing, rate of 70. Echocardiogram demonstrates essentially normal study. LABORATORY STUDIES: Notable only for potassium of 3.7. Troponins are flat and reflect response to patient's elevated heart rates. Lipids are well managed. IMPRESSION: A 46-year-old female with paroxysmal SVT discerned at time of patient presentation with acute pharyngitis. She notes difficulties with intermittent atrial tachycardia symptoms for extensive duration of time. Plan will be referred to EP for further evaluation. Continue metoprolol dosing, supplement potassium to greater than 4 today. Likely plans to discharge later this afternoon.
[2017-02-27 11:57] VITALS: BP 108/72; PULSE 70; TEMP 36.8; O2SAT 94
[2017-02-27] MEDS ORDERED: POTASSIUM CHLORIDE 10 MEQ TABCR PO ONE (12:00)
--- NOTE | 2017-02-27 14:04 | Discharge Summary ---
Discharge Summary Date of Service Feb 27, 2017. Discharge Summary Admission Date: Feb 26, 2017 at 15:26 Discharge Date: Feb 27, 2017 Discharge Disposition: Home Principal Diagnosis: SUPRAVENTRICULAR TACHYCARDIA Procedures: ECHO: * The left ventricle is normal in size. * There is borderline concentric left ventricular hypertrophy. * The left ventricular wall motion is normal. * Ejection Fraction = 55-60%. CXR: IMPRESSION: Negative chest. Consultations: Cardiology, EP Pending Studies/Follow-Up: Follow up with Dr Roberts at [facility] on 03/04/17 at 12:45pm Follow up with cardiology on March 20 at 12:45pm at [place] office Follow up with EP for EPS with possible ablation scheduled on March 14, 2017. Complete the antibiotic course as advised Medication Reconciliation New Medications: Metoprolol Tartrate (Lopressor) 25 Mg Tab 12.5 MG PO BID for 30 Days, #30 TAB Continued Medications: Atorvastatin (Lipitor) 20 Mg Tab 20 MG PO HS, TAB Azithromycin (Zithromax) 250 Mg Tab 1 PKT PO UD for 5 Days, #1 PKT Take 2 tablets by mouth on first day, then 1 tablet daily until gone. Cyclobenzaprine HCl (Cyclobenzaprine HCl) 5 Mg Tab 5 MG PO DAILY PRN for Muscle Spasms, #30 TAB Ferrous Sulfate (Ferrous Sulfate) 325 Mg Tab 325 MG PO DAILY Ibuprofen Tab (Advil) 200 Mg Tab 200 MG PO UD PRN for Pain, TAB TAKE PER PACKAGE DIRECTIONS Levothyroxine Sodium (Levothyroxine Sodium) 50 Mcg Tab 50 MCG PO DAILY, TAB Omeprazole (Prilosec) 40 Mg Cap 40 MG PO DAILY, CAP Prednisone (Prednisone) 20 Mg Tab 40 MG PO DAILY for 5 Days Ranitidine (Zantac) 150 Mg Tab 150 MG PO BID PRN for Indigestion, TAB Sertraline (Zoloft) 100 Mg Tab 150 MG PO HS, TAB Admission Information HPI (per Admitting provider): This is 46 yo F with past medical hx of GERD, Dyslipidemia , Hypothyroidism was seen at [facility] with complain of non productive cough , sore throat for X 1 week had pain neck , swollen gland , ear ache , felt palpitation/fluttering of chest , felt dizzy and lightheaded pt was found to be in SVT sent to ER HR was > 160 in ER with symptom of feeling flushed, lightheaded , nausea , SOB given Adenosine X1 , IV Lopressor pt converted to rate controlled sinus rhythm during my interview , pt was comfortable , no complain of chest pain , no palpitation, dizzy spell or lightheadedness mentions that she has been having this symptom on and off for past 1 year will get sudden attacks of palpitation /fluttering of chest -leads to dizzy spell , lightheadedness, SOB needs to rest takes some time to resolve no episode of syncope pt has been complaining to her Family physician -but was told possible esophageal spasm can not co relate to any particular activity to cause the symptom feels relief that diagnosis of SVT was found -as episodes has been more frequent and causing anxiety no complain of SOB , orthopnea , MANCILLA Physical Exam (per Admitting): General Appearance: no apparent distress Head: normocephalic, atraumatic Eyes: sclerae normal Neck: thyroid normal, no carotid bruits Respiratory/Chest: chest non-tender, lungs clear, normal breath sounds, no respiratory distress Cardiovascular: regular rate, rhythm, no edema, no JVD, no murmur, normal peripheral pulses Abdomen/GI: normal bowel sounds, non tender, soft Back: no CVA tenderness Extremities/Musculoskelatal: normal capillary refill, no pedal edema Neurologic/Psych: no motor/sensory deficits, alert, normal mood/affect, oriented x 3 Skin: normal color, warm/dry, no rash Lymphatic: + cervical node abnormality Hospital Course SVT : Patient presented with symptomatic SVT Currently in sinus Continue Metoprolol ECHO: left ventricular wall motion is normal, EF:55-60% Appreciate Cardiology input TSH:normal Normal D dimer Appreciate Input. Planned for EPS with possible ablation on March 14 ELEVATED TROPONIN : Likely secondary to above Denies chest pain EKG no ischemic change HYPOTHYROIDISM : cont Levothyroxine TSH -wnl URI:Likely Presented with cough, sore throat CXR: normal complete Zithromax Day 2 CODE STATUS: FULL CODE DVT PX Scd ambulate DISPOSITION : Plan to discharge home today Follow up with Dr Roberts at [facility] on 03/04/17 at 12:45pm Follow up with cardiology on March 20 at 12:45pm at [place] office Follow up with EP for EPS with possible ablation scheduled on March 14, 2017. ECHO: * The left ventricle is normal in size. * There is borderline concentric left ventricular hypertrophy. * The left ventricular wall motion is normal. * Ejection Fraction = 55-60%. CXR: IMPRESSION: Negative chest. Total time spent on discharge = 33 minutes This includes examination of the patient, discharge planning, medication reconciliation, and communication with other providers. Discharge Instructions Discharge Instructions Date of Service Feb 26, 2017. Admission Reason for Admission: Svt (Supraventricular Tachycardia) Discharge Discharge Diagnosis / Problem: SUPRAVENTRICULAR TACHYCARDIA Discharge Goals Goal(s): Decrease discomfort, Diagnostic testing Activity Recommendations Activity Limitations: resume your previous activity Driving or Machine Use: no limitations . Instructions / Follow-Up Instructions / Follow-Up HOSPITAL FOLLOW UP 03/05/2017 @ 1:[address] Quita Merino, Internal Medicine [facility] CARDIOLOGY FOLLOW UP WITH DR SHAFFER IN 3-4 WEEKS, PLEASE CALL OFFICE FOR APPOINTMENT Current Hospital Diet Patient's current hospital diet: AHA Diet (Heart Healthy) Discharge Diet Recommended Diet: AHA Diet (Heart Healthy) Pending Studies Studies pending at discharge: no Medical Emergencies . Who to Call and When: Medical Emergencies: If at any time you feel your situation is an emergency, please call 911 immediately. . Non-Emergent Contact Non-Emergency issues call your: Primary Care Provider . . "Provider Documentation" section prepared by Dali Mcdonnell. . VTE Core Measure Inpt VTE Proph given/why not?: Unfractionated heparin SQ Addendum: Kuldeep Monzon MD on 02/27/17 @ 14:03 Discharge Inst - Addendum Addendum Notes: Follow up with Dr Roberts at [facility] on 03/04/17 at 12:45pm Follow up with cardiology on March 20 at 12:45pm at [place] office Follow up with EP for EPS with possible ablation scheduled on March 14, 2017. Complete the antibiotic course as advised Addendum Provider: Addendum Notes were documented by provider Kuldeep Monzon.
[2017-02-27 14:09] VITALS: BP 108/72; PULSE 70; TEMP 36.8; O2SAT 94
[2017-02-27] MEDS ORDERED: AZITHROMYCIN 250 MG TAB PO SCH (21:00)
--- NOTE | 2017-02-28 08:31 | CARDIOLOGY CONSULTATION ---
DATE OF CONSULTATION: 02/27/2017 REFERRING PHYSICIAN: Dr. Macias. REASON FOR CONSULTATION: SVT. HISTORY OF PRESENT ILLNESS: This is a 46-year-old female, who has a past medical history consisting of hypothyroidism, hyperlipidemia, gastroesophageal reflux disease, who has a history of recurrent tachycardic palpitations. She went to her primary doctor's because of a sore throat, was diagnosed with strep throat, but at the doctor's, she was found to have a rapid heart rate and was recommended to go to the Emergency Room. On presentation, she was in SVT at a rate of 160. She does have some shortness of breath and lightheadedness with dizziness with the symptoms that they persist for a long time. She has been having these for years and they seem to have been worsening. Denies any chest pains. PAST MEDICAL HISTORY: As listed above. ALLERGIES: Bunionectomy. MEDICATIONS: Atorvastatin 20 mg, iron supplement, ibuprofen as needed, levothyroxine 50 mcg, omeprazole, ranitidine and Zoloft. FAMILY HISTORY: Father had a possible heart attack in the setting of a bleeding ulcer in his 30s. SOCIAL HISTORY: She is a nonsmoker for the last 3 years. No significant alcohol use. Does drink some caffeine iced tea. REVIEW OF SYSTEMS: All other 10-point review of systems reviewed and are essentially negative at this time. ALLERGIES: PENICILLIN. PHYSICAL EXAMINATION: VITAL SIGNS: Temperature 36.8, heart rate 70, respirations 18, blood pressure 108/72, oxygen saturation 94%. GENERAL: She is awake, alert and oriented x3, no acute distress, sitting up in the bed. HEENT: Normocephalic, atraumatic. Extraocular motion intact. Sclerae is nonicteric. Mucous membranes moist. NECK: Supple, no carotid bruits appreciated. No JVD. Carotid upstrokes normal. CARDIOVASCULAR: Normal S1, S2, regular rate and rhythm, no murmur appreciated. PULMONARY: Clear to auscultation bilaterally. No wheezes, rales or rhonchi. ABDOMEN: Positive bowel sounds, soft, nontender, nondistended. EXTREMITIES: No clubbing or cyanosis, bilateral fingers. No edema in the bilateral lower extremities. NEUROLOGIC: Grossly intact. PERTINENT TESTING: EKG on presentation, SVT appears to be short RP, 166 beats per minute with ST and T-wave abnormalities. Repeat EKG was sinus rhythm, 92. EKG on February 27, sinus rhythm, 70. Echocardiogram, ejection fraction 55%-60%, borderline concentric LVH. No significant valvular pathology. Hematology, CBC, WBCs 4.7, hemoglobin 11.6, hematocrit 37, platelets 297. Chemistry: Sodium 141, potassium 3.7, chloride 108, carbon dioxide 27, BUN 11, creatinine 0.62, glucose 86. Lipid panel: Triglycerides 75, total cholesterol 120, LDL 63, HDL 42. IMPRESSION: 1. Supraventricular tachycardia, appears to be short RP, symptomatic. 2. Acute strep pharyngitis. 3. Hypothyroidism. 4. Hyperlipidemia. 5. Gastroesophageal reflux disease. PLAN: Recommend electrophysiology study with possible ablation. I explained the possible risks and the procedures to the patient. Risks include, but are not limited to, sudden cardiac , cardiac arrhythmias, cerebrovascular accident, myocardial infarction, injury to the blood vessels, chamber of the heart or the table mountain electrical system, where she would need a permanent pacemaker, bleeding and infection. The patient understood these risks and agreed to go through the procedure as planned. We will schedule her for the procedure, as an outpatient, next month. LADARIUS
[2017-03-16] MEDS ORDERED: MTR600X PO (14:26)
[2017-03-16] MEDS ORDERED: CLC6 PO (14:26)
== END 2017-02-27 14:40 | disposition home or self-care (01) | DRG 310 ==
LOC: EDBD 13:39 → C.EDC 13:42 → C.2T 15:26 → ENRESERV 15:42
PROVIDERS: ADMIT Hospitalist; ATTEND Internal Medicine
DX: I47.1 Supraventricular tachycardia (principal); K21.9 Gastro-esophageal reflux disease without esophagitis; F32.9 Major depressive disorder, single episode, unspecified; K58.9 Irritable bowel syndrome, unspecified; E03.9 Hypothyroidism, unspecified; J06.9 Acute upper respiratory infection, unspecified; Z87.891 Personal history of nicotine dependence; Z82.49 Family history of ischemic heart disease and other diseases of the circulatory system

== ENCOUNTER 2017-03-14 11:09 | Inpatient (IN) | payer OTHER ==
[2017-03-14] VITALS (20 sets, daily range): BP systolic 110–142; BP diastolic 75–98; PULSE 70–113; TEMP 36.6–36.8; O2SAT 96–98; Ht 162.6 cm; Wt 82.9 kg
[~2017-03-14] VITALS: Ht 162.6 cm; Wt 82.9 kg
[~2017-03-14 11:09] MED LIST changes: -ASPI1TAB4 PO; +AZIT250T PO; +LPR25 PO; -MISCCAP80 PO; +OMEP40CA41 PO; +PRD20 PO
--- NOTE | 2017-03-14 12:36 | History & Physical Bridge Note ---
H&P Re-Evaluation Bridge Note: I have examined the patient, reviewed the History & Physical and in the interval since the performance of the History & Physical I have noted the following changes of clinical significance: No changes noted
--- NOTE | 2017-03-14 12:37 | Procedure Note ---
Pre-Mod Sedation Assessment General Date of Moderate Sedation: Mar 14, 2017. Vital Signs: Vital Signs Past 12 Hours Date Time Temp Pulse Resp B/P (MAP) Pulse Ox O2 Delivery O2 Flow Rate FiO2 03/14/17 12:14 36.6 70 18 119/75 98 Room Air Review Cardiovascular: regular rate, rhythm Abdomen: soft Lungs: lungs clear Pre-Sedation Airway Assessment Oral Cavity: WNL Short Thick Neck: No Hx of Sleep Apnea: No Smoking Status: Former Smoker Mallampati Classification: Class II ASA Classification: Class II Procedure Planning Contraindications-for Mod Sed: None Yes Notes The planned sedation has been discussed with the patient and consent obtained. I have identified the patient, determined the appropriateness of sedation and have assessed the patient immediately prior to the procedure. All medicine(s) and interventions are by my order.
[2017-03-14] MEDS ORDERED: FENTANYL CITRATE INJ 50 MCG/1 ML 2 ML VIAL ONE ×3 (13:28→15:15)
[2017-03-14] MEDS ORDERED: MIDAZOLAM HCL 5 MG/ML 1 ML VIAL ONE ×2 (13:28→13:52)
[2017-03-14] MEDS ORDERED: ADENOSINE IV SOLN 3 MG/ML 2 ML VIAL ONE (13:59)
[2017-03-14] MEDS ORDERED: HEPARIN SOD (PORCINE) 1000 UNIT/ML 10 ML VIAL ONE ×2 (14:11→14:24)
[2017-03-14] MEDS ORDERED: HEPARIN 25000 UNIT/500 ML D5W ONE (14:13)
[2017-03-14] MEDS ORDERED: PROTAMINE SULFATE 10 MG/ML 5 ML VIAL IV ONE (15:52)
[2017-03-14] MEDS ORDERED: ATROPINE SULFATE 0.1 MG/ML 10 ML SYR ONE (16:18)
[2017-03-14] MEDS ORDERED: DOPamine 400MG / 250ML D5W ONE (16:19)
[2017-03-14] MEDS ORDERED: RANITIDINE HCL 25 MG/ML INJ ONE (16:25)
[2017-03-14] MEDS ORDERED: DiphenhydrAMINE HCL 50 MG/ML VIAL ONE (16:25)
[2017-03-14] MEDS ORDERED: METHYLPREDNISOLONE 125 MG VIAL ONE (16:26)
[2017-03-14 17:03] LABS: HEMATOCRIT 37.7 % (37-47); MEAN CELL VOLUME 91.3 fL (80-100); MEAN CORPUSCULAR HEMOGLOBIN 27.8 pg (25-34); MEAN CORPUSCULAR HGB CONC 30.5 g/dl (32-36); MEAN PLATELET VOLUME 9.7 fL (7.4-10.4); PLATELET COUNT 292 K/uL (130-400); RED BLOOD COUNT 4.13 M/uL (4.2-5.4); WHITE BLOOD COUNT 11.51 K/uL (4.8-10.8)
[2017-03-14 17:10] LABS: INR 1.1 (0.9-1.1); PROTHROMBIN TIME (PATIENT) 11.6 SECONDS (9.0-12.0)
[2017-03-14] MEDS ORDERED: OPTIRAY 320 IV PRN (17:15)
[2017-03-14 17:20] LABS: ISTAT CREATININE 0.7 mg/dl (0.6-1.3); ISTAT HEMOGLOBIN 11.9 g/dl (12.0-16.0); ISTAT IONIZED CALCIUM 1.19 mmol/l (1.12-1.32)
[2017-03-14 17:21] LABS: CREATININE 0.61 mg/dl (0.60-1.20); MAGNESIUM 1.9 mg/dl (1.8-2.4); POTASSIUM 4.5 mmol/L (3.5-5.1)
[2017-03-14] MEDS ORDERED: MoRPHine SULFATE 2 MG/ML CARP ONE ×2 (17:23→18:16)
[2017-03-14] MEDS ORDERED: ACETAMINOPHEN 325 MG TAB PO PRN (17:30)
[2017-03-14] MEDS ORDERED: RANITIDINE HCL 150 MG TAB PO PRN (17:45)
--- NOTE | 2017-03-14 17:48 | DIAGNOSTIC IMAGING REPORT ---
CT OF THE CHEST WITH IV CONTRAST CLINICAL HISTORY: Chest pain. COMPARISON STUDY: Chest CT November 15, 2016. TECHNIQUE: Following IV administration of 94 mL of Optiray-320, helical axial images of the chest were obtained. Sagittal and coronal reconstructions were viewed as well as maximal intensity projections on an independent 3-D workstation CT DOSE: 796.28 mGy.cm FINDINGS: Incidental note is made of an aberrant right subclavian artery. The size of the heart is normal. There is a small pericardial effusion which has developed since CT of November 15, 2016. Fluid measures greater than water attenuation. Several mildly enlarged mediastinal lymph nodes are noted. Index precarinal lymph node measures 1.3 cm in short axis diameter. There is mild aortic dilatation at the level of the sinuses of Valsalva. The aorta measures 4 cm at the level the sinuses of Valsalva. No thoracic aortic dissection is identified on this non-CTA exam. Lungs are suboptimally assessed due to respiratory motion. Interlobular septal thickening represents edema. There are scattered airspace opacities with tiny nodules throughout the lungs. This favors pulmonary edema given development since CT of November 15, 2016. Bony thorax and upper abdomen are unremarkable. IMPRESSION: 1. Small pericardial effusion. Pericardial fluid measures greater than water attenuation. Although this could be artifactual, a complex pericardial effusion such as hemopericardium could have this appearance. 2. Mild dilatation of the aorta the level the sinuses of Valsalva, measuring 4 cm. No thoracic aortic dissection identified. 3. Interlobular septal thickening consistent with pulmonary edema. Groundglass and nodular opacities within lungs also likely reflect pulmonary edema. 4. Mild mediastinal lymphadenopathy. This is nonspecific and may be related to pulmonary edema but a follow-up chest CT in 2 months to ensure resolution is recommended. 5. Mildly dilated esophagus. Electronically signed by: Reyse Jimenez M.D. 03/14/2017 5:47 PM Dictated Date/Time: 03/14/2017 5:29 PM
--- NOTE | 2017-03-14 18:26 | Medical Consult ---
Consultation Note Date of Service Mar 14, 2017. Consultation Note Faith Givens is a 46-year-old female who underwent a left sided ablation for supraventricular tachycardia by Dr. Joseline Holcomb [facility] cardiology. Is she has a few concerns. One concern was the catheter which was twisted on itself in the right femoral artery. There is a problem with the patient suddenly became mottled and concerned about a possible dissection and pericardial effusion was was raised. I came over to the EP lab. We pull the catheter out of the right sewings. A FemoStop was placed. In addition she was sent over very quickly for a CT scan with contrast. We saw no evidence of a dissection. She had a small pericardial effusion which was not hemodynamically significant echocardiogram. She settled down and was transferred over to the intensive care unit. Past medical history: #1 supraventricular tachycardia #2.Gastroesophageal reflux disease #3 hiatal hernia #4 hyperlipidemia #5 history of cigarette smoking in the past #6 hypothyroidism #7 small cerebral aneurysm #8 ectopic #9 questionable inflammatory bowel disease #10 right upper lobe mass Past surgical history: #1. Rotator cuff repair #2 . Bunionectomy #3 suction curettage #4 6 para 3 Medications: please see chart Allergies: penicillin Social history:Patient is currently unemployed. He quit smoking several years ago. She lives with her . Family medical history:Patient's father at age 35 "gastric ulcers". He may also had a myocardial infarction. He also suffered from hypertension. Her children apparently healthy. Review of systems ; The patient did get lightheaded with her supraventricular tachycardia of 160 bpm. She denied nausea or vomiting or diarrhea. She diaphoresis. She denied productive cough. She had some neurologic symptoms a few months ago this was not due to any acute neurologic event. She's had no amaurosis fugax or transient ischemic attack. No skin breakdown. He's had no hearing or visual deficits. She denies shortness of breath. Physical exam: Well-developed well-nourished female appears her stated age. She is awake and breathing with a oxygen mask but has been sedated. 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 She does appear to be a bit mottled. Her extraocular movements are intact. Her pupils are equally round and reactive. Sclerae anicteric. She has no nasolabial flattening. Oral mucosa is dry teeth are in fairly good repair. Neck is supple. Carotid pulses are equal with good upstrokes. She has no bruits. I detect no neck vein distention or thyromegaly. She moving air fairly well without wheezing. She has a regular rhythm but a rate of about 120 bpm. Her abdomen is soft nontender. Bellybutton ring noted. I detect no evidence of ascites or abdominal aortic aneurysm. She has no hepatosplenomegaly. She has multiple venous and arterial catheters coming out of both groins. I can palpate pulses in both of her dorsalis pedis areas although there are faint. She doesn't appear to be a bit mottled. She is moving all extremities. No joint effusions or peripheral edema. She has no obvious focal deficits. Data: I reviewed her CT scan closely and I see no evidence of a aortic dissection. She does have a right upper lobe lesion appeared 9 mm. She also has some changes consistent with emphysema on the CT of her chest. There is small pericardial effusion. By report, the patient had a echocardiogram done at the bedside, and while it was a poor report, she had no evidence of diastolic collapse. Assessment/plan: Patient received 10 mL of contrast as well as protamine very close together before she suffered this problem. Her catheter was removed from her right femoral artery and she did have some bleeding but FemoStop was placed and this did stop by the time she got to the intensive care unit. As we see no evidence of any aortic dissection nonhemodynamically significant pericardial effusion, I would simply observe her in the ICU and supporters necessary. She appears to be much better after arriving in the ICU. [place] thank Dr. Che for asking me to see this patient. I will follow along the ICU but she appears to be stabilizing.
[2017-03-14] MEDS ORDERED: IV FLUIDS COMPLETED PRN (20:15)
[2017-03-14] MEDS: METOPROLOL TARTRATE 25 MG TAB PO SCH (20:33)
[2017-03-14] MEDS: SERTRALINE HCL 100 MG TAB PO SCH (20:34)
[2017-03-14] MEDS: MoRPHine SULFATE 2 MG/ML CARP IV PRN (22:17)
[2017-03-15] MEDS: OXYCODONE/ACETAMINOPHEN 5-325 TAB PO PRN ×3 (01:56→12:34)
[2017-03-15 04:00] VITALS: BP 101/74; PULSE 75; TEMP 36.8; O2SAT 97
[2017-03-15] MEDS: LEVOTHYROXINE 50 MCG TAB PO SCH (06:25)
[2017-03-15 08:00] VITALS: BP 125/81; PULSE 96; TEMP 36.8; O2SAT 96; O2SAT 97
--- NOTE | 2017-03-15 08:28 | Procedure Note ---
Post-Mod Sedation Assessment General Date of Moderate Sedation Mar 14, 2017. Vital Signs: Vital Signs Past 12 Hours Date Time Temp Pulse Resp B/P (MAP) Pulse Ox O2 Delivery O2 Flow Rate FiO2 03/15/17 04:00 36.8 75 14 101/74 (83) 97 Nasal Cannula 2.0 03/15/17 04:00 97 Nasal Cannula 2.0 03/14/17 23:59 36.7 83 16 110/86 (94) 98 Nasal Cannula 2.0 03/14/17 23:59 98 Nasal Cannula 2.0 03/14/17 20:30 93 15 116/93 (101) 96 Nasal Cannula 2.0 Review - Discharge Criteria Vital Signs Stable: Yes Alert/Oriented/Conversant: Yes Returned to Baseline Mental St: Yes Nausea Absent/Minimal: Yes Pain/Discomfort/Absent/Minimal: Yes Normal/Baseline Respirations: Yes Active Bleeding?: N/A Pt Received D/C Instructions: N/A Prescriptions Given: None Specific Proced. D/C Criteria Distal Pulses Present (Cardiac: Yes Groin site assessed-Card Cath: Yes Voided Prior To Discharge: N/A Discharged Patients Adult Escort/Transportation: N/A
--- NOTE | 2017-03-15 08:30 | [facility] Post Operative Brief Note ---
Immediate Operative Summary Operative Date Mar 14, 2017. Pre-Operative Diagnosis svt Post-Operative Diagnosis left lateral bypass tract Procedure(s) Performed unsuccessful ablation of left lateral bypass tract; anaphylactic reaction to protamine Surgeon terrence burciaga Records Officer Surgeon(s) none Estimated Blood Loss <5cc Findings see official report Fluids (cc crystalloids) defer to nursing notes Specimens none Drains none Anesthesia see nursing notes Complication(s) None Disposition Surgical ICU
--- NOTE | 2017-03-15 08:30 | ECHOCARDIOGRAM REPORT ---
*NOTICE TO RECEIVING LIBERTARIAN AGENCY This information is strictly Confidential and protected under [place] law. [place] law prohibits you from making any further disclosure of this information unless further disclosure is expressly permitted by the written consent of the person to whom it pertains or is authorized by law. A general authorization for the release of medical or other information is not sufficient for this purpose. Hospital accepts no responsibility if the information is made available to any other person, INCLUDING THE PATIENT. Interpretation Summary * Name: JESSENIA OLIVA Study Date: 03/14/2017 04:20 PM BP: 119/75 mmHg * Patient Location: EP LAB HR: 70 * : 1970 (M/d/yyyy) Gender: Female Height: 67 in * Age: 46 yrs Ethnicity: CA Weight: 169 lb * Ordering Physician: Joseline Harding DO * Performed By: Karolina Nicholas RCS * * Reason For Study: STAT- CHECK FOR PERICARDIAL EFFUSION * BSA: 1.9 m2 * The study was technically limited. * Limited views were obtained. * -- Conclusions -- * The study was technically limited. * Limited views were obtained. * Exam is completed while patient is in tachycardia * Small pericardial effusion. * There are no echocardiographic indications of cardiac tamponade. Procedure Details * The study was technically limited. Left Ventricle * The left ventricle is normal in size. * There is normal left ventricular wall thickness. * Left ventricular systolic function is normal. Right Ventricle * The right ventricle is normal size. * The right ventricular systolic function is normal. Atria * The left atrial size is normal. * Right atrial size is normal. Mitral Valve * The mitral valve is grossly normal. Tricuspid Valve * The tricuspid valve is not well visualized, but is grossly normal. Aortic Valve * The aortic valve is normal in structure and function. Pulmonic Valve * The pulmonic valve is not well visualized. Pericardium/Pleural * Small pericardial effusion. * There are no echocardiographic indications of cardiac tamponade.
[2017-03-15] MEDS: PANTOprazole SOD 40 MG TAB PO SCH (08:54)
[2017-03-15] MEDS: FERROUS SULFATE 325 MG TAB PO SCH (08:54)
[2017-03-15] MEDS: METOPROLOL TARTRATE 25 MG TAB PO SCH ×2 (08:54→21:18)
[2017-03-15] MEDS ORDERED: PERFLUTREN LIPID MICROSPHERE (DEFINITY) IV ONE (09:32)
--- NOTE | 2017-03-15 10:01 | Progress Note ---
Progress Note Date of Service Mar 15, 2017. Progress Note Mrs. Givens was seen this morning. She looks much improved. I'm still a bit at a loss to explain exactly what happened yesterday but it may been a combination of the IV contrast, protamine, or response to the intervention itself. At any rate she looks much better today. Her lungs are clear. She has an excellent right posterior tibialis pulse in her foot is warm and well perfused. She is still complaining of some chest pain. She states the chest pain started yesterday morning before her intervention. She also has a pericardial effusion is scheduled to undergo a repeat echocardiogram today which I think is appropriate. She has no evidence of pulsus paradoxus and has crisp heart tones. Her rhythm has been stable. She has no neck vein distention. Another problem that this patient has is the fact that she has a right upper lobe mass. I measured about 10 mm. I reviewed her CT scan from 11/15/2016 very closely with the radiologist this morning and compared to the CT done yesterday. The problem is she appeared to be in some congestive failure yesterday and is difficult to compare the 2 lesions. Having said that, she has larger lymph nodes now than she did back on 11/15/2016. I'm going to let her settle down and be discharged on a set her up for a PET CT scan in about 1 month. I will see her back in the office at that time. We may end up having to offer her an intervention. She understands. She smoked from age 17 to age 40. She averaged about a pack a day.
[2017-03-15] MEDS ORDERED: NURSING VERBAL MED ORDER ONE ×3 (10:45→16:45)
[2017-03-15] MEDS: MoRPHine SULFATE 2 MG/ML CARP IV PRN ×2 (11:27→15:31)
[2017-03-15 12:00] VITALS: BP 119/73; PULSE 89; TEMP 36.6; O2SAT 96; O2SAT 97
--- NOTE | 2017-03-15 12:05 | ECHOCARDIOGRAM REPORT ---
*NOTICE TO RECEIVING CONSTITUTION PARTY AGENCY This information is strictly Confidential and protected under [place] law. [place] law prohibits you from making any further disclosure of this information unless further disclosure is expressly permitted by the written consent of the person to whom it pertains or is authorized by law. A general authorization for the release of medical or other information is not sufficient for this purpose. Hospital accepts no responsibility if the information is made available to any other person, INCLUDING THE PATIENT. Interpretation Summary * Name: JESSENIA OLIVA Study Date: 03/15/2017 09:17 AM BP: 125/81 mmHg * Patient Location: .MSICU\S\E103\S\1 HR: 96 * : 1970 (M/d/yyyy) Gender: Female Height: 64 in * Age: 46 yrs Ethnicity: CA Weight: 176 lb * Ordering Physician: Joseline Reyna * Referring Physician: Joseline Reyna D.O. * Performed By: Sharon Randle RDCS * * Reason For Study: SVT * BSA: 1.9 m2 * -- Conclusions -- * Small pericardial effusion which actually appears to be smaller when compared to the previous study 03/14/17. Procedure Details * A complete two-dimensional transthoracic echocardiogram was performed (2D, M-mode, Doppler and color flow Doppler). * A contrast injection of Definity was performed to improve assessment of LV function. * Contrast was injected into an intravenous site in the left arm. * One vial of Definity ultrasound contrast was diluted in normal saline to a total volume of 10 ml. A total of '2' ml of solution was administered during imaging. * Lot # [id number] of Definity utilized for procedure. * Expiration date APR 27. * The attending nurse who injected the contrast agent was Kianna Valero RN. Left Ventricle * The left ventricle is normal in size. * There is normal left ventricular wall thickness. * Ejection Fraction = 55-60%. Right Ventricle * The right ventricle is normal size. * The right ventricular systolic function is normal. Mitral Valve * The mitral valve is normal in structure and function. Tricuspid Valve * The tricuspid valve is normal in structure and function. Aortic Valve * The aortic valve is normal in structure and function. Pulmonic Valve * The pulmonic valve is not well visualized. Pericardium/Pleural * Small pericardial effusion. MMode 2D Measurements and Calculations IVSd 0.98 cm LVIDd 3.9 cm LVIDs 2.8 cm LVPWd 0.90 cm IVS/LVPW 1.1 FS 29.0 % EDV(Teich) 65.3 ml ESV(Teich) 28.5 ml EF(Teich) 56.3 % EDV(cubed) 58.7 ml ESV(cubed) 21.0 ml EF(cubed) 64.1 % LV mass(C)d 111.7 grams LV mass(C)dI 60.3 grams/m\S\2 SV(Teich) 36.8 ml SI(Teich) 19.9 ml/m\S\2 SV(cubed) 37.6 ml SI(cubed) 20.3 ml/m\S\2 Ao root diam 3.5 cm Ao root area 9.6 cm\S\2 ACS 1.6 cm LA dimension 2.0 cm asc Aorta Diam 3.3 cm LA/Ao 0.57 LVOT diam 2.0 cm LVOT area 3.1 cm\S\2 LVAd ap4 25.0 cm\S\2 LVLd ap4 7.3 cm EDV(MOD-sp4) 70.3 ml EDV(sp4-el) 73.1 ml LVAs ap4 14.2 cm\S\2 LVLs ap4 6.1 cm ESV(MOD-sp4) 27.8 ml ESV(sp4-el) 28.3 ml EF(MOD-sp4) 60.4 % EF(sp4-el) 61.3 % LVAd ap2 27.7 cm\S\2 LVLd ap2 8.7 cm EDV(MOD-sp2) 74.3 ml EDV(sp2-el) 75.1 ml LVAs ap2 14.8 cm\S\2 LVLs ap2 6.6 cm ESV(MOD-sp2) 27.8 ml ESV(sp2-el) 28.4 ml EF(MOD-sp2) 62.6 % EF(sp2-el) 62.2 % LVLd %diff 16.2 % EDV(MOD-bp) 78.5 ml LVLs %diff 7.1 % ESV(MOD-bp) 28.5 ml EF(MOD-bp) 63.7 % SV(MOD-sp4) 42.5 ml SI(MOD-sp4) 22.9 ml/m\S\2 SV(MOD-sp2) 46.5 ml SI(MOD-sp2) 25.1 ml/m\S\2 SV(MOD-bp) 50.0 ml SI(MOD-bp) 27.0 ml/m\S\2 SV(sp4-el) 44.8 ml SI(sp4-el) 24.2 ml/m\S\2 SV(sp2-el) 46.7 ml SI(sp2-el) 25.2 ml/m\S\2 Doppler Measurements and Calculations MV E max zari 92.3 cm/sec MV A max zari 89.8 cm/sec MV E/A 1.0 MV dec time 0.19 sec Ao V2 max 116.1 cm/sec Ao max PG 5.4 mmHg Ao max PG (full) 1.6 mmHg STACY(V,A) 2.6 cm\S\2 STACY(V,D) 2.6 cm\S\2 LV V1 max PG 3.7 mmHg LV V1 max 96.7 cm/sec PA V2 max 108.6 cm/sec PA max PG 4.7 mmHg PA acc slope 435.8 cm/sec\S\2 PA acc time 0.16 sec PI max zari 130.3 cm/sec PI max PG 6.8 mmHg PI dec slope 269.9 cm/sec\S\2 PI P1/2t 141.4 msec PA pr(Accel) 6.1 mmHg
[2017-03-15 16:00] VITALS: BP 129/86; PULSE 102; TEMP 36.6; O2SAT 93; O2SAT 97
[2017-03-15] MEDS ORDERED: RANITIDINE IV 50 MG in DEXTROSE 5% 100ML 100 ML IV ONE (16:00)
[2017-03-15] MEDS ORDERED: METHYLPREDNISOLONE 125 MG in SYRINGE 0 ML IV ONE (16:00)
[2017-03-15] MEDS ORDERED: DiphenhydrAMINE HCL 50 MG/ML VIAL IV ONE (16:00)
--- NOTE | 2017-03-15 16:22 | DIAGNOSTIC IMAGING REPORT ---
CT ANGIO ABD/PELVIS WITH CONTRAST CT DOSE: CLINICAL HISTORY: Chest and abdominal pain. Possible dissection. TECHNIQUE: Helical images were acquired in transverse plane during intravenous administration of 94 cc of Optiray 320. MIP imaging was performed. COMPARISON STUDY: None. FINDINGS: Visualized portions of the lung bases reveal bibasilar atelectatic changes, and septal edema. No hepatic masses are visualized in the central phase study. There is dependent increased density within the gallbladder, representing either calculi or vicarious contrast excretion from a prior contrast administration No splenic masses are visualized the central phase study. No pancreatic masses are visualized. No adrenal masses are visualized. No renal masses are visualized this arterial phase study. There is no hydronephrosis. There are no transition zones indicate bowel obstruction. There is no evidence of acute diverticulitis. The appendix appears normal. There is no ascites. There is no free intraperitoneal air. There is no evidence of pathologic adenopathy. There is no evidence for abdominal or iliac artery aneurysm. There are no intimal flaps to indicate acute aortic dissection. There is no evidence of superior mesenteric, celiac, or renal artery stenosis. There is a small focal dissection of the right common femoral artery. This may be secondary to recent catheterization. The more distal superficial femoral artery and profunda artery appear patent. There is an L4-5 disc osteophyte complex. There is bilateral foraminal narrowing. IMPRESSION: 1. No evidence of abdominal aortic aneurysm or dissection 2. Small focal dissection right common femoral artery. 3. No evidence of bowel obstruction. No evidence of free air 4. No acute inflammatory changes. 5. Bibasilar atelectasis Electronically signed by: Thony Marks M.D. 03/15/2017 4:20 PM Dictated Date/Time: 03/15/2017 4:11 PM
--- NOTE | 2017-03-15 16:26 | DIAGNOSTIC IMAGING REPORT ---
CT ANGIOGRAPHY OF THE CHEST WITH AND WITHOUT CONTRAST DISSECTION PROTOCOL CLINICAL HISTORY: Ablation. Chest pain. Evaluate for dissection. COMPARISON STUDY: Chest CT March 14, 2017 and November 15, 2016. TECHNIQUE: Patient was premedicated for an IV dye allergy. Unenhanced and arterial phase imaging of the chest was performed. Injection of 94 cc Optiray 320 IV was uneventful. Sagittal and coronal reconstructions were viewed as well as maximal intensity projections on an independent 3-D workstation. FINDINGS: The caliber of the thoracic aorta is normal. There is no evidence of thoracic aortic dissection. A small slightly hyperdense pericardial effusion has decreased in size since CT of March 14, 2017. Dependent lower lobe opacities favor atelectasis. There is no pneumothorax. Reticulonodular interstitial thickening within the lungs has slightly improved. A 9 mm irregular right upper lobe nodule shown image 91 of 284 is unchanged since exam of November 15, 2016. Bony thorax is unremarkable. Abdomen and pelvis will be reported separately. Note is made of an aberrant right subclavian artery. Several mildly enlarged thoracic lymph nodes are similar to prior exam. These remain indeterminate. IMPRESSION: 1. No thoracic aortic dissection. 2. Interval decrease in size of a small slightly hyperdense pericardial effusion. 3. Interval improvement in reticulonodular interstitial thickening within the lungs which suggests pulmonary edema. 4. No change in a 9 mm irregular right upper lobe nodule which should be assessed on subsequent studies. 5. Dependent lower lobe opacities which favor atelectasis. Consolidation could appear similar but is considered less likely. Electronically signed by: Reyes Jimenez M.D. 03/15/2017 4:24 PM Dictated Date/Time: 03/15/2017 4:10 PM
[2017-03-15] MEDS ORDERED: HYDROmorphone INJ 1 MG/ML SYR ONE (16:44)
[2017-03-15] MEDS ORDERED: KETOROLAC TROMETHAMINE 30 MG/ML VIAL IV STA (16:53)
[2017-03-15] MEDS ORDERED: KETOROLAC TROMETHAMINE 15 MG/ML VIAL IV PRN (17:00)
--- NOTE | 2017-03-15 17:11 | Cardiology Follow-Up ---
Subjective Subjective Date of Service: Mar 15, 2017. Pt evaluation today including: conversation w/ patient, conversation w/ family , physical exam, chart review, lab review, review of studies, review of inpatient medication list Pain: continues to have chest pain and epigastric pain especially w/ breathing Additional Details: Pt seen earlier this morning and then again this afternoon pt not taking deep breath due to the pain Problem List Medical Problems: (1) Elevated troponin Status: Acute (2) Headache Status: Acute (3) Horners syndrome Status: Acute (4) Neck muscle strain Status: Acute (5) Ptosis, right eyelid Status: Acute Review of Systems Constitutional: No fever Respiratory: + shortness of breath Cardiac: + chest pain, No edema, No palpitations Abdomen: No nausea, No vomiting, No diarrhea Objective Vital Signs Last Vital Signs Documentation Date Time Temp Pulse Resp B/P (MAP) Pulse Ox O2 Delivery O2 Flow Rate FiO2 03/15/17 12:00 36.6 89 16 119/73 (88) 96 Room Air 03/15/17 12:00 2.0 Physical Exam: General Appearance: WD/WN, + mild distress Eyes: bilateral eyes PERRL, bilateral eyes EOMI Neck: supple, no JVD Respiratory/Chest: lungs clear, normal breath sounds (shallow breathing though- not taking deep breaths. ) Cardiovascular: regular rate, rhythm, no JVD, no murmur, + tachycardia Abdomen: soft Extremities: no pedal edema Neurologic/Psychiatric: alert, oriented x 3 Skin: warm/dry, no rash (b/l groins soft no hematoma b/l) Assessment and Plan Impression: 1. Acute pericarditis 2. Acute anaphylactic reaction presumably to protamine but could have also been due to IV contrast 3. 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 AVRT, left lateral bypass tract, s/p EPS with no ablation due to ablation catheter defect getting stuck in femoral sheath 5. Recent strep throat 2 weeks ago Plan: -Colchicine 0.6mg BID, first dose now -Toradol q 6hr PRN pain-give dose now then will have PRN for breakthrough pain; as we will start high dose ibuprofen -Ibuprofen 800mg TID starting tonight since patient is getting toradol now -Incentive spirometry -BMP tomorrow -Monitor overnight due to acute pericarditis. Continued [facility] stay due to: other (acute pericarditis) Discharge planning: home Medications: Medications Administered Medications (Trade) Dose Ordered Sig/[facility] Route Start Time Stop Time Status Last Admin Dose Admin Fentanyl Citrate (Fentanyl Inj) 100 mcg STK-MED ONCE .ROUTE 03/14/17 13:28 03/14/17 13:29 DC 03/14/17 13:28 100 MCG Midazolam HCl (Versed Inj) 5 mg STK-MED ONCE .ROUTE 03/14/17 13:28 03/14/17 13:29 DC 03/14/17 13:28 5 MG Midazolam HCl (Versed Inj) 5 mg STK-MED ONCE .ROUTE 03/14/17 13:52 03/14/17 13:53 DC 03/14/17 13:52 4 MG Fentanyl Citrate (Fentanyl Inj) 100 mcg STK-MED ONCE .ROUTE 03/14/17 13:53 03/14/17 13:54 DC 03/14/17 13:53 25 MCG Adenosine (Adenosine IV) 3 mg STK-MED ONCE .ROUTE 03/14/17 13:59 03/14/17 14:00 DC 03/14/17 13:59 3 MG Heparin Sodium (Porcine) (Heparin Iv Bolus) 10,000 unit STK-MED ONCE .ROUTE 03/14/17 14:11 03/14/17 14:12 DC 03/14/17 14:11 10,000 UNIT Fentanyl Citrate (Fentanyl Inj) 100 mcg STK-MED ONCE .ROUTE 03/14/17 15:15 03/14/17 15:16 DC 03/14/17 15:15 100 MCG Protamine Sulfate (Protamine Sulfate) 50 mg STK-MED ONCE IV 03/14/17 15:52 03/14/17 15:53 DC 03/14/17 15:52 20 MG Atropine Sulfate (Atropine Sulfate) 1 mg STK-MED ONCE .ROUTE 03/14/17 16:18 03/14/17 16:19 DC 03/14/17 16:18 1 MG Diphenhydramine HCl (Benadryl Inj) 50 mg STK-MED ONCE .ROUTE 03/14/17 16:25 03/14/17 16:26 DC 03/14/17 16:25 50 MG Ranitidine HCl (zANTac IV) 50 mg STK-MED ONCE .ROUTE 03/14/17 16:25 7/5/17 16:26 DC 03/14/17 16:25 50 MG Methylprednisolone Sodium Succinate (Solu-Medrol IV) 125 mg STK-MED ONCE .ROUTE 03/14/17 16:26 03/14/17 16:27 DC 03/14/17 16:26 125 MG Oxycodone/ Acetaminophen (Percocet 5-325mg Tab) 1 tablet for pain scale ... Q6H PRN PO 03/14/17 17:30 03/15/17 10:48 DC 03/15/17 07:52 2 TAB Ferrous Sulfate (Feosol Tab) 325 mg DAILY PO 03/15/17 09:00 04/14/17 08:59 03/15/17 08:54 325 MG Levothyroxine Sodium (Synthroid Tab) 50 mcg DAILYBB PO 03/15/17 06:00 04/14/17 05:59 03/15/17 06:25 50 MCG Metoprolol Tartrate (Lopressor Tab) 12.5 mg BID PO 03/14/17 21:00 04/13/17 20:59 03/15/17 08:54 12.5 MG Sertraline HCl (Zoloft Tab) 150 mg HS PO 03/14/17 21:00 04/13/17 20:59 03/14/17 20:34 150 MG Pantoprazole Sodium (Protonix Tab) 40 mg DAILY PO 03/15/17 09:00 04/14/17 08:59 03/15/17 08:54 40 MG Morphine Sulfate (MoRPHine SULFATE INJ) 1 mg Q4 PRN IV 03/14/17 17:45 03/28/17 17:44 03/15/17 15:31 1 MG Morphine Sulfate (MoRPHine SULFATE INJ) 2 mg STK-MED ONCE .ROUTE 03/14/17 18:16 03/14/17 18:17 DC 03/14/17 18:19 1 MG Perflutren Lipid Microsphere (Definity) 2 ml ONE ONCE IV 03/15/17 09:32 03/15/17 09:33 DC 03/15/17 09:33 2 ML Oxycodone/ Acetaminophen (Percocet 5-325mg Tab) 1 tablet for pain scale ... Q4H PRN PO 03/15/17 11:00 03/29/17 10:59 03/15/17 12:34 1 TAB Methylprednisolone Sodium Succinate 125 mg/Syringe 2 ml @ 1.5 mls/min 1600 ONCE IV 03/15/17 16:00 03/15/17 16:01 DC 03/15/17 15:49 1.5 MLS/MIN Diphenhydramine HCl (Benadryl Inj) 25 mg 1600 ONCE IV 03/15/17 16:00 03/15/17 16:01 DC 03/15/17 15:48 25 MG Ranitidine HCl 50 mg/Dextrose 102 ml @ 204 mls/hr 1600 ONCE IV 03/15/17 16:00 03/15/17 16:29 DC 03/15/17 15:49 204 MLS/HR Hydromorphone HCl (Dilaudid Inj) 1 mg STK-MED ONCE .ROUTE 03/15/17 16:44 03/15/17 16:45 DC 03/15/17 16:53 1 MG Lab Results: ECG Today: SR 100bpm consistent with acute pericarditis CT Chest repeat today: I reviewed with the radiologist personally today No aortic dissection Pulmonary edema improved from comparison to yesterday No PE Pericardial effusion with stranding is improved +b/l Atelectasis Small right femoral artery dissection
[2017-03-15] MEDS: COLCHICINE 0.6 MG TAB PO SCH ×2 (18:04→21:18)
[2017-03-15] MEDS: IBUPROFEN 600 MG TAB PO SCH (18:04)
[2017-03-15 20:01] VITALS: BP 103/74; PULSE 95; TEMP 36.8; O2SAT 94
[2017-03-15] MEDS: SERTRALINE HCL 100 MG TAB PO SCH (21:18)
[2017-03-15 23:59] VITALS: O2SAT 96
[2017-03-16] VITALS (11 sets, daily range): BP systolic 93–119; BP diastolic 57–67; PULSE 77–99; TEMP 36.7–37.2; O2SAT 91–97
[2017-03-16] MEDS: IBUPROFEN 600 MG TAB PO SCH ×3 (02:27→17:43)
[2017-03-16] MEDS: LEVOTHYROXINE 50 MCG TAB PO SCH (05:39)
[2017-03-16] MEDS: PANTOprazole SOD 40 MG TAB PO SCH (08:54)
[2017-03-16] MEDS: COLCHICINE 0.6 MG TAB PO SCH ×2 (08:54→21:46)
[2017-03-16] MEDS: FERROUS SULFATE 325 MG TAB PO SCH (08:54)
[2017-03-16] MEDS: METOPROLOL TARTRATE 25 MG TAB PO SCH ×2 (09:00→21:48)
--- NOTE | 2017-03-16 10:05 | Cardiology Follow-Up ---
Subjective General Date of Service: Mar 16, 2017. 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 Acute pericarditis. CP improved with NSIAD and colchicine. Allergies Coded Allergies: Penicillins (Verified Allergy, Unknown, RASH, 02/26/17) Social History Smoking Status: Former Smoker Hx Tobacco Use In Past Year?: No Hx Alcohol Use - Type And Amou: No Hx Substance Use - Type And Am: No Problem List Medical Problems: (1) Elevated troponin Status: Acute (2) Headache Status: Acute (3) Horners syndrome Status: Acute (4) Neck muscle strain Status: Acute (5) Ptosis, right eyelid Status: Acute Physical Exam Vital Signs Last Vital Signs Documentation Date Time Temp Pulse Resp B/P (MAP) Pulse Ox O2 Delivery O2 Flow Rate FiO2 03/16/17 09:00 99 15 94/63 (73) 97 Nasal Cannula 2.0 03/16/17 08:01 36.7 Physical Exam Head: normocephalic ENMT: normal ENT inspection Neck: supple, trachea midline Lungs: Auscultation: breath sounds normal, CTA except as noted, no wheezing, no rales/crackles, no rhonchi Cardiovascular: Heart Auscultation: RRR, normal S1, normal S2, no murmurs, no rubs Abdomen: Bowel Sounds: normal Inspection & Palpation: soft, non-distended Liver: no hepatomegaly Musculoskeletal: normal Extremities: no cyanosis, no edema Neurologic: Cranial Nerves: grossly intact Sensation: grossly intact Assessment and Plan Assessment and Plan Acute pericarditis post ablation AVRT. Continue current treatment. Pt. hemodynamically stable Meds Administered (Past 24Hrs) Medications (Trade) Dose Ordered Sig/Torin Route Start Time Stop Time Status Last Admin Dose Admin Fentanyl Citrate (Fentanyl Inj) 100 mcg STK-MED ONCE .ROUTE 03/14/17 13:28 03/14/17 13:29 DC 03/14/17 13:28 100 MCG Midazolam HCl (Versed Inj) 5 mg STK-MED ONCE .ROUTE 03/14/17 13:28 03/14/17 13:29 DC 03/14/17 13:28 5 MG Midazolam HCl (Versed Inj) 5 mg STK-MED ONCE .ROUTE 03/14/17 13:52 03/14/17 13:53 DC 03/14/17 13:52 4 MG Fentanyl Citrate (Fentanyl Inj) 100 mcg STK-MED ONCE .ROUTE 03/14/17 13:53 03/14/17 13:54 DC 03/14/17 13:53 25 MCG Adenosine (Adenosine IV) 3 mg STK-MED ONCE .ROUTE 03/14/17 13:59 03/14/17 14:00 DC 03/14/17 13:59 3 MG Heparin Sodium (Porcine) (Heparin Iv Bolus) 10,000 unit STK-MED ONCE .ROUTE 03/14/17 14:11 03/14/17 14:12 DC 03/14/17 14:11 10,000 UNIT Fentanyl Citrate (Fentanyl Inj) 100 mcg STK-MED ONCE .ROUTE 03/14/17 15:15 03/14/17 15:16 DC 03/14/17 15:15 100 MCG Protamine Sulfate (Protamine Sulfate) 50 mg STK-MED ONCE IV 03/14/17 15:52 03/14/17 15:53 DC 03/14/17 15:52 20 MG Atropine Sulfate (Atropine Sulfate) 1 mg STK-MED ONCE .ROUTE 03/14/17 16:18 03/14/17 16:19 DC 03/14/17 16:18 1 MG Diphenhydramine HCl (Benadryl Inj) 50 mg STK-MED ONCE .ROUTE 03/14/17 16:25 03/14/17 16:26 DC 03/14/17 16:25 50 MG Ranitidine HCl (zANTac IV) 50 mg STK-MED ONCE .ROUTE 03/14/17 16:25 03/14/17 16:26 DC 03/14/17 16:25 50 MG Methylprednisolone Sodium Succinate (Solu-Medrol IV) 125 mg STK-MED ONCE .ROUTE 03/14/17 16:26 03/14/17 16:27 DC 03/14/17 16:26 125 MG Oxycodone/ Acetaminophen (Percocet 5-325mg Tab) 1 tablet for pain scale ... Q6H PRN PO 03/14/17 17:30 03/15/17 10:48 DC 03/15/17 07:52 2 TAB Ferrous Sulfate (Feosol Tab) 325 mg DAILY PO 03/15/17 09:00 04/14/17 08:59 03/16/17 08:54 325 MG Levothyroxine Sodium (Synthroid Tab) 50 mcg DAILYBB PO 03/15/17 06:00 04/14/17 05:59 03/16/17 05:39 50 MCG Metoprolol Tartrate (Lopressor Tab) 12.5 mg BID PO 03/14/17 21:00 04/13/17 20:59 03/15/17 21:18 12.5 MG Sertraline HCl (Zoloft Tab) 150 mg HS PO 03/14/17 21:00 04/13/17 20:59 03/15/17 21:18 150 MG Pantoprazole Sodium (Protonix Tab) 40 mg DAILY PO 03/15/17 09:00 04/14/17 08:59 03/16/17 08:54 40 MG Morphine Sulfate (MoRPHine SULFATE INJ) 1 mg Q4 PRN IV 03/14/17 17:45 03/28/17 17:44 03/15/17 15:31 1 MG Morphine Sulfate (MoRPHine SULFATE INJ) 2 mg STK-MED ONCE .ROUTE 03/14/17 18:16 03/14/17 18:17 DC 03/14/17 18:19 1 MG Perflutren Lipid Microsphere (Definity) 2 ml ONE ONCE IV 03/15/17 09:32 03/15/17 09:33 DC 03/15/17 09:33 2 ML Oxycodone/ Acetaminophen (Percocet 5-325mg Tab) 1 tablet for pain scale ... Q4H PRN PO 03/15/17 11:00 03/29/17 10:59 03/15/17 12:34 1 TAB Methylprednisolone Sodium Succinate 125 mg/Syringe 2 ml @ 1.5 mls/min 1600 ONCE IV 03/15/17 16:00 03/15/17 16:01 DC 03/15/17 15:49 1.5 MLS/MIN Diphenhydramine HCl (Benadryl Inj) 25 mg 1600 ONCE IV 03/15/17 16:00 03/15/17 16:01 DC 03/15/17 15:48 25 MG Ranitidine HCl 50 mg/Dextrose 102 ml @ 204 mls/hr 1600 ONCE IV 03/15/17 16:00 03/15/17 16:29 DC 03/15/17 15:49 204 MLS/HR Hydromorphone HCl (Dilaudid Inj) 1 mg STK-MED ONCE .ROUTE 03/15/17 16:44 03/15/17 16:45 DC 03/15/17 16:53 1 MG Ketorolac Tromethamine (Toradol Inj) 30 mg NOW STAT IV 03/15/17 16:53 03/15/17 17:05 DC 03/15/17 18:05 30 MG Colchicine (Colchicine Tab) 0.6 mg BID PO 03/15/17 17:00 04/14/17 16:59 03/16/17 08:54 0.6 MG Ibuprofen (Motrin Tab) 600 mg Q8H PO 03/15/17 18:00 04/14/17 17:59 03/16/17 08:56 600 MG Test 03/14/17 16:04 03/14/17 16:15 03/14/17 16:21 03/14/17 16:50 Kaolin Activated Coagulation Time 191 142 POC Hemoglobin 11.9 POC Hematocrit 35 POC Sodium 142 POC Potassium 3.7 POC Chloride 105 POC Total CO2 25 Anion Gap 17.0 3.0 POC Blood Urea Nitrogen 9 POC Creatinine 0.7 POC Glucose 111 POC Ionized Calcium ([place]) 1.19 White Blood Count 11.51 Red Blood Count 4.13 Hemoglobin 11.5 Hematocrit 37.7 Mean Corpuscular Volume 91.3 Mean Corpuscular Hemoglobin 27.8 Mean Corpuscular Hemoglobin Concent 30.5 RDW Standard Deviation 43.2 RDW Coefficient of Variation 12.9 Platelet Count 292 Mean Platelet Volume 9.7 Prothrombin Time 11.6 Prothrombin Time INR 1.1 Sodium Level 144 Potassium Level 4.5 Chloride Level 116 Carbon Dioxide Level 25 Blood Urea Nitrogen 10 Creatinine 0.61 Est Creatinine Clear Calc Drug Dose 122.0 Estimated GFR () 125.1 Estimated GFR (Non- 108.0 BUN/Creatinine Ratio 16.0 Random Glucose 126 Calcium Level 7.0 Magnesium Level 1.9
--- NOTE | 2017-03-16 11:35 | Progress Note ---
Progress Note Date of Service Mar 16, 2017. Progress Note Mrs. Givens was seen today. Her chest pain is better. It appears she did have pericarditis. We again discussed this mass in her right upper lobe. I am concerned about its appearance. I'm going to let her settle down from everything is going on and obtain a CT/PET in about 1 month. I'll see her back in the office after that. I'm concerned about her mediastinal adenopathy and told her such.
[2017-03-16] MEDS: OXYCODONE/ACETAMINOPHEN 5-325 TAB PO PRN ×2 (11:37→22:20)
--- NOTE | 2017-03-16 14:25 | Discharge Instructions ---
Discharge Instructions Date of Service Mar 16, 2017. Admission Reason for Admission: *Dr Reyna To Do* W/Ablation,Sct Discharge Discharge Diagnosis / Problem: AVRT Discharge Goals Goal(s): Improve function Activity Recommendations Activity Limitations: as noted below Lifting Limitations: no more than 10 pounds May Resume Sexual Activity: after one week Shower/Bathe: tomorrow Driving or Machine Use: resume 1 day after discharge . Instructions / Follow-Up Instructions / Follow-Up ACTIVITY RECOMMENDATIONS: It is common to feel weak and fatigue for a few days. * Limit stair usage (2 or 3 trips a day only) for the next three days. * Do not lift anything heavier than 10 pounds for the next three days. * Do not engage in vigorous exercise or any sports for the next five days. * You may shower the day after your procedure, but do not immerse the area for three days. Cleanse the site gently with soap and water. SPECIAL CARE INSTRUCTIONS: * You may replace the pressure dressing or band-aid the morning after the procedure. * After your procedure, it is normal to have a small bruise or small lump at the site. Examine your site daily for any change in the bruise or lump, redness, swelling, drainage or numbness. Notify your doctor if any change. BLEEDING: * If there is a small amount of bleeding at the site, lie down and apply firm pressure with a clean cloth for ten minutes. When the bleeding stops, lie quietly keeping the procedure limb straight for six hours. Notify your doctor as soon as possible. * If the bleeding does not stop after ten minutes or if there is a large amount of bleeding or spurting, call 911 immediately. Continue to lie down and hold firm pressure until help arrives. SKIN IRRITATION: * You may experience some redness and/or swelling in the area where radiation was administered. If any skin irritation occurs, please contact your family physician. FOLLOW UP VISIT: Keep any scheduled doctor appointments. Current Hospital Diet Patient's current hospital diet: Regular Diet Discharge Diet Recommended Diet: Regular Diet Procedures Procedures Performed: unsuccessful ablation of left lateral bypass tract; anaphylactic reaction to protamine Pending Studies Studies pending at discharge: no Laboratory Results Lipid Panel Test 02/27/17 06:51 Range/Units Triglycerides Level 75 0-150 mg/dl Cholesterol Level 120 0-200 mg/dl HDL Cholesterol 42 mg/dl Cholesterol/HDL Ratio 2.9 LDL Cholesterol, Calculated 63 mg/dl Medical Emergencies . Who to Call and When: Medical Emergencies: If at any time you feel your situation is an emergency, please call 911 immediately. . Non-Emergent Contact Non-Emergency issues call your: Electronic Publications Specialist . . "Provider Documentation" section prepared by Joseline Reyna. . VTE Core Measure Inpt VTE Proph given/why not?: Treatment not indicated
[2017-03-16] MEDS ORDERED: MTR600X PO (14:26)
[2017-03-16] MEDS ORDERED: CLC6 PO (14:26)
--- NOTE | 2017-03-16 14:38 | Discharge Summary ---
Discharge Summary Date of Service Mar 16, 2017. Discharge Summary Admission Date: Mar 15, 2017 at 08:33 Discharge Date: Mar 17, 2017 Discharge Disposition: Home Principal Diagnosis: 1. 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 Recent strep throat 2 weeks ago Procedures: unsuccessful ablation of left lateral bypass tract Medication Reconciliation New Medications: Colchicine (Colcrys) 0.6 Mg Tab 0.6 MG PO BID for 14 Days, #28 TAB Ibuprofen (Ibuprofen) 600 Mg Tab 600 MG PO Q8H for 14 Days, #42 TAB Continued Medications: Atorvastatin (Lipitor) 20 Mg Tab 20 MG PO HS, TAB Ferrous Sulfate (Ferrous Sulfate) 325 Mg Tab 325 MG PO DAILY Levothyroxine Sodium (Levothyroxine Sodium) 50 Mcg Tab 50 MCG PO DAILY, TAB Metoprolol Tartrate (Lopressor) 25 Mg Tab 12.5 MG PO BID for 30 Days, #30 TAB Omeprazole (Prilosec) 40 Mg Cap 40 MG PO DAILY, CAP Ranitidine (Zantac) 150 Mg Tab 150 MG PO BID PRN for Indigestion, TAB Sertraline (Zoloft) 100 Mg Tab 150 MG PO HS, TAB Admission Information Physical Exam (per Admitting): aaox3, NAD, NC/AT, EOMI Supple, No JVD Nrl S1/S2 no murmur cta b/l no w/r/r soft nt/nd no edema b/l le no focal deficits skin intact Hospital Course Pt admitted for elective EPS with possible ablation for SVT. Pt underwent procedure; found to have left lateral bypass tract. While mapping the LV for the bypass tract via a retrograde approach through the aorta the ablation catheter became malfunctioned with not being able to straighten out the catheter (so it remained in the J shape). Remaining with this curve caused the catheter to telescope into the sheath. The patient was given some IV contrast to better assess the sheath followed then about 20 minutes later protamine was given to reverse the heparin so we could pull the sheath and the ablation catheter as one unit. About 5 minutes after the protamine was given the patient became bradycardic and hypotensive responded to IVF and atropine; followed by some facial and neck swelling and discoloration; patient was treated for possible anaphylactic reaction to the protamine with solumedrol, benadrly and zantac. Anesthesiology was consulted for possible intubation but this was not required as patient maintained her airway and her oxygenation. Vascular surgery was consulted due to the concern for possible aortic dissection and the femoral artery injury with the ablation catheter malfunction. The ablation catheter and sheath was manually pulled by vascular surgery and mannual compression was held to establish hemostasis-no complication with that. Patient had a CT scan with contrast that did not rule show any aortic injury. The following day she continued to have chest pain and SOB. A repeat echocardiogram was performed which did not show any AI and there was trace pericardial effusion stable from day prior (limited echo done in EP lab during the acute reaction). A repeat CT chest and abdomin with contrast was performed due to continual chest pain radiating to back and epigastric region this time gated for the aorta and this showed no arotic injury but there was a minor dissection of femoral artery. Pt diagnosed with acute pericarditis and started on colchicine and NSAIDS with improvement of her pain. Still slightly hypoxic but better on POD #2 as she was taking deeper breaths. She was discharged home POD #3. Total time spent on discharge = This includes examination of the patient, discharge planning, medication reconciliation, and communication with other providers. Discharge Instructions ACTIVITY RECOMMENDATIONS: It is common to feel weak and fatigue for a few days. * Limit stair usage (2 or 3 trips a day only) for the next three days. * Do not lift anything heavier than 10 pounds for the next three days. * Do not engage in vigorous exercise or any sports for the next five days. * You may shower the day after your procedure, but do not immerse the area for three days. Cleanse the site gently with soap and water. SPECIAL CARE INSTRUCTIONS: * You may replace the pressure dressing or band-aid the morning after the procedure. * After your procedure, it is normal to have a small bruise or small lump at the site. Examine your site daily for any change in the bruise or lump, redness, swelling, drainage or numbness. Notify your doctor if any change. BLEEDING: * If there is a small amount of bleeding at the site, lie down and apply firm pressure with a clean cloth for ten minutes. When the bleeding stops, lie quietly keeping the procedure limb straight for six hours. Notify your doctor as soon as possible. * If the bleeding does not stop after ten minutes or if there is a large amount of bleeding or spurting, call 911 immediately. Continue to lie down and hold firm pressure until help arrives. SKIN IRRITATION: * You may experience some redness and/or swelling in the area where radiation was administered. If any skin irritation occurs, please contact your family physician. FOLLOW UP VISIT: Keep any scheduled doctor appointments.
[2017-03-16] MEDS: SERTRALINE HCL 100 MG TAB PO SCH (21:49)
[2017-03-17 03:30] VITALS: BP 100/66; PULSE 80; TEMP 36.8; O2SAT 91
[2017-03-17] MEDS: IBUPROFEN 600 MG TAB PO SCH ×2 (03:33→10:50)
[2017-03-17] MEDS: LEVOTHYROXINE 50 MCG TAB PO SCH (06:01)
[2017-03-17 08:19] VITALS: BP 115/64; PULSE 72; TEMP 36.9; O2SAT 98
[2017-03-17] MEDS: PANTOprazole SOD 40 MG TAB PO SCH (08:23)
[2017-03-17] MEDS: METOPROLOL TARTRATE 25 MG TAB PO SCH (08:23)
[2017-03-17] MEDS: FERROUS SULFATE 325 MG TAB PO SCH (08:23)
[2017-03-17] MEDS: COLCHICINE 0.6 MG TAB PO SCH (08:24)
--- NOTE | 2017-03-17 11:08 | Cardiology Follow-Up ---
Subjective Subjective Date of Service: Mar 17, 2017. Pt evaluation today including: conversation w/ patient, physical exam, chart review, lab review, review of studies, review of inpatient medication list Additional Details: Pt seen and examined, states that she feels well. Tired and slight chest/neck discomfort but greatly improved. Denies sob, palpitations, lightheadedness or dizziness. Tele reviewed: sinus rhythm without arrhythmia. Problem List Medical Problems: (1) Elevated troponin Status: Acute (2) Headache Status: Acute (3) Horners syndrome Status: Acute (4) Neck muscle strain Status: Acute (5) Ptosis, right eyelid Status: Acute Review of Systems Constitutional: No fever Respiratory: No see HPI, No cough, No sputum, No wheezing, No shortness of breath, No dyspnea on exertion, No dyspnea at rest, No hemoptysis, No problem reported Cardiac: + chest pain, No see HPI, No orthopnea, No PND, No edema, No claudication, No palpitations, No problem reported Abdomen: No nausea, No vomiting, No diarrhea Objective Vital Signs Last Vital Signs Documentation Date Time Temp Pulse Resp B/P (MAP) Pulse Ox O2 Delivery O2 Flow Rate FiO2 03/17/17 08:19 36.9 72 18 115/64 (81) 98 03/17/17 08:00 Room Air 03/16/17 09:00 2.0 Physical Exam: General Appearance: WD/WN, no apparent distress Eyes: bilateral eyes normal inspection, bilateral eyes PERRL, bilateral eyes EOMI ENT: normal ENT inspection, hearing grossly normal, pharynx normal Neck: supple, no adenopathy, thyroid normal, no JVD Respiratory/Chest: chest non-tender, lungs clear, normal breath sounds ( shallow breathing though-not taking deep breaths. ), no respiratory distress, no accessory muscle use Cardiovascular: regular rate, rhythm, no edema, no JVD, no murmur, + gallop/S4 Abdomen: normal bowel sounds, non tender, soft, no organomegaly, no pulsatile mass Extremities: normal inspection, no pedal edema, no calf tenderness Neurologic/Psychiatric: pega developer II-XII nml as tested, no motor/sensory deficits, alert, normal mood/affect, oriented x 3 Skin: normal color, warm/dry, no rash (b/l groins soft no hematoma b/l) Lymphatic: no adenopathy Assessment and Plan 1. SVT ablation aborted due to medication reaction and catheter issue 2. pericarditis acute started on ibuprofen and colchicine improving f/u with Dr. Reyna in 3-4 weeks scripts sent to pharmacy Continued [facility] stay due to: other (acute pericarditis) Discharge planning: home
[2017-03-17 11:25] VITALS: BP 115/64; PULSE 72; TEMP 36.9; O2SAT 98
--- NOTE | 2017-03-28 13:17 | [facility] Operative Report ---
Operative Report Operative Date Mar 28, 2017. Pre-Operative Diagnosis svt Post-Operative Diagnosis left lateral bypass tract Procedure(s) Performed unsuccessful ablation of left lateral bypass tract; anaphylactic reaction to protamine Surgeon terrence reyna Diet Consultant Surgeon(s) none Estimated Blood Loss <5cc Findings DATE OF OPERATION: 03/14/2017 PREOPERATIVE DIAGNOSIS: Supraventricular tachycardia. 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 PROCEDURE: Electrophysiology study, unsuccessful radiofrequency ablation of a left lateral bypass tract as unable to do any ablation because defect in the ablation catheter further complicated with anaphylactic reaction to protamine. Started to 3D mapping of the mitral valvular annulus and activation mapping of the SVT, SURGEON: Terrence Reyna, GARBAGE STOKER: None. ANESTHESIA: Monitored conscious sedation given under my supervision; administered by Doug Scott with a total of 9 mg of Versed, 225 mcg of fentanyl start time was 13:39, stopped time was 15:00 INTRAVENOUS FLUIDS: 1000 mL. BOLUS: Heparin a total of 9000 units over the course of the procedure. COMPLICATIONS: Ablation catheter became defective remained in F curve unable to straighten out resulting in small right femoral artery dissection when manually pulled from jeanne body by Dr. Morris vascular surgery; anaphylactic reaction presumably to protamine vs IV contrast dye. CONDITION: Stable. URINE OUTPUT: Not applicable. SPECIMENS: None. FINDINGS: See below. DRAINS: None. INDICATIONS FOR PROCEDURE: This is a 46-year-old female who has a past medical history significant for palpitations for most of her life and then finally caught on ECG when she recently went to an urgent care center for strep throat. She was sent to [facility] and got IV adenosine and broke back to . She was treated for strep throat. After treatment she was recommended recommended electrophysiology study with possible ablation. CONSENT: Consent was obtained prior to the patient going into the electrophysiology lab. The patient was explained the risks, benefits and alternatives to the procedure. Risks include but not limited to sudden cardiac ; cardiac arrhythmias; cerebrovascular accident; myocardial infarction; injury to the blood vessels, chamber of the heart or the rampart electrical system that the patient may need a permanent pacemaker; bleeding and infection. The patient understood these risks and agreed to go to the procedure as planned. Her mom signed on her behalf since the patient was very anxious for the procedure. DESCRIPTION OF PROCEDURE: The patient was brought into the electrophysiology lab in a fasting state. The patient was connected to continuous cardiac monitoring. A time-out was performed to ensure patient's identity and procedure preoperatively. The patient was prepped and draped over the bilateral groins in normal surgical standard fashion. Monitored conscious sedation care was given throughout the procedure under my supervision for patient's comfort level. [place] precautions were maintained throughout the procedure. A 10 mL of 1% lidocaine were given for local anesthesia in the bilateral groins. Using the modified Seldinger technique, venous access was obtained in the following manner; 1. The left femoral vein had a 7-Dutch sheath followed by tachycardia Decapolar Biosense CS catheter DF curve positioned into the coronary sinus. 2. A 7-Dutch sheath with a hisi-Neumaticos diagnostic quad catheter positioned over the His bundle. 3. A 6-Dutch sheath with a Raffi diagnostic quad positioned into the right ventricular apex. 4. The right groin within right femoral vein had a 6-Dutch sheath with a Raffi quad diagnostic catheter positioned into the high right atrium. 5. Eventually, the right femoral artery had a 9-Dutch sheath with SmartTouch Biosense irrigational 4 mm ablation catheter DF curve. While placing the C/S catheter into the coronary sinus the patient went into SVT. Once the catheter's were positioned while in the SVT following was found: TCL 386ms VA was eccentric with earliest retrograde A being out in the distal CS VA time was 98ms Pt broke on her own so an Electrophysiology study was performed with the following findings: 1. Baseline intervals, NH interval 136 milliseconds, QRS 54 milliseconds, QT 326 milliseconds, sinus cycle length 758 milliseconds, AH 84 milliseconds, HV 42 milliseconds. The patient went back into SVT with atrial burst pacing at 350ms when looking for AV Wenckebach. The patient was given 6mg adenosine and this broke the tachycardia but the patient briefly went into AF; the shortest R-R was 408ms and the bypass tract did not conduct antegrade Since the patient kept having runs of the SVT we set up to start activation mapping the left lateral Bypass tract and SVT. I gave another 5 mL of 1% local anesthesia and local 1% lidocaine in the right femoral groin area and then obtained femoral arterial access without any problems and a 9-Dutch sheath was inserted over the guidewire and then the ablation catheter was advanced up retrograde through the aorta and we did 3D mapping of the mitral valvular annulus as well as activation mapping of the tachycardia. While mapping the ablation catheter became defective where it was stuck in the F curve shape and I was not able to straighten it out. This defect stuck in curve resulted in the catheter getting stuck in the 9 albanian femoral sheath. It was at this juncture that I called in Dr. French (EP) and Dr. Beltran ( repairer kiln car) for their advice. We gave IV contrast through the sheath 2 times first in AP view and second in LOCK. About 20 minutes later we gave protamine to reverse the heparin because ACT was still elevated and it we were concerned that the sheath was going to cause thrombus since the sheath was now bent (telescoped) over the curved defective ablation catheter. About 5 minutes after the protamine was given the patient became hypotensive and bradycardic. We gave atropine and opened IVF wide. her HR and BP responded -she did not go into SVT. However her neck and face were becoming swollen and grayish; of note her oxygen saturation was maintained entire time. Anesthesia was called to the room-but pt did not require intubation. Stat echocardiogram was performed which revealed a trace pericardial effusion. Pt was given IV solumedrol, benadryl and zantic. Vascular surgery was consulted as well Dr. Morris. Dr. Morris pulled the Right femoral arterial sheath with the defective ablation catheter out as one unit and held manual pressure to obtain hemostasis. We could see the sheath had telescoped over the catheter. Dr. Morris was not concerned for any significant arterial damage. The remaining venous catheters were pulled and manual compression was held to establish hemostasis. Then patient was sent for CT with contrast of the chest and aorta to ensure no aortic dissection had occurred. Of note by the time she got to CT scan her neck and face were normal color and the swelling was significantly improved. CT was negative for any aortic injury or trauma; there was pulmonary congestion and trace pericardial effusion with stranding. Pt was transferred to the ICU. IMPRESSION 1. Inducible atrioventricular reentry tachycardia with evidence of a left lateral bypass tract, orthodromic conduction. 2. Ablation catheter defect where it got stuck in F curve shape resulting in small right femoral artery dissection. 3. Anaphylactic reaction to probably protamine but would not exclude IV contrast PLAN: Monitor patient closely in ICU, 12-lead ECG. Fluids 1000 Specimens none Drains none Anesthesia 9mg versed 225mcg fentanyl Complication(s) small right femoral artery dissection Anaphylactic reaction to protamine Disposition Surgical ICU I attest to the content of the Intraoperative Record and any orders documented therein. Any exceptions are noted below.
== END 2017-03-17 12:45 | disposition home or self-care (01) | DRG 308 ==
LOC: C.EP 11:09 → EDBEDREQSVC 16:45 → ENRESERV 16:48 → C.MSICU 17:32 → OBSVTOIN 03-15 08:33 → ENRESERV 03-15 14:52 → CANRESERV 03-15 14:52 → CANBEDREQ 03-15 15:28 → C.2E 03-16 16:14
PROVIDERS: ADMIT Internal Medicine; ATTEND Internal Medicine
DX: I47.1 Supraventricular tachycardia (principal); I77.77 Dissection of artery of lower extremity; I97.88 Other intraoperative complications of the circulatory system, not elsewhere classified; I30.9 Acute pericarditis, unspecified; Z87.891 Personal history of nicotine dependence; T45.7X5A Adverse effect of anticoagulant antagonists, vitamin K and other coagulants, initial encounter; Y84.0 Cardiac catheterization as the cause of abnormal reaction of the patient, or of later complication, without mention of misadventure at the time of the procedure; R91.8 Other nonspecific abnormal finding of lung field